=== PATIENT | male | born 1940 | race Caucasian/White ===

== ENCOUNTER 2018-06-25 05:00 | Inpatient (IN) | payer OTHER ==
[~2018-06-25] VITALS: Ht 185.4 cm; Wt 80.3 kg
[2018-06-25] VITALS (25 sets, daily range): BP systolic 75–195; BP diastolic 48–106
[~2018-06-25 05:00] MED LIST: AMLODIPINE BESY10 MG PO; ASPIR 8181 MG PO; FISH OIL 1,001000 M2 PO; GLIPIZIDE 10 MG10 MG PO; HYDROCHLOROTHIA25 M2 PO; LISINOPRIL20 MG PO; METFORMIN HCL500 MG PO
[2018-06-25 05:24] LABS: BE -4.9 mmol/L (-2 to +3); HCO3 19.5 mmol/L (22.0-26.0); PCO2 33.3 mmHg (35.0-45.0); PO2 71.5 mmHg (75.0-100.0); pH 7.386 (7.340-7.450)
[2018-06-25 05:28] LABS: HEMATOCRIT 24.6 % (42.0-52.0); MCH 26.6 pg (26.0-34.0); MCHC 32.7 g/dL (28.0-37.0); MCV 81.1 fL (80.0-100.0); MPV 9.3 fl. (7.2-11.1); NUCLEATED RBCS 0 /100WBC; PLATELET COUNT* 164 thou/uL (150-400); RBC 3.03 mil/uL (4.50-6.00); WBC 21.4 thou/uL (4.0-11.0)
[2018-06-25 05:37] LABS: CALCIUM 9.1 mg/dL (8.5-10.1); CREATININE 1.4 mg/dL (0.6-1.3); POTASSIUM 4.5 mmol/L (3.5-5.1)
[2018-06-25 05:41] LABS: APTT 32.9 Seconds (25.0-31.3); INR 1.3; PROTIME 13.3 Seconds (9.20-11.50)
[2018-06-25 05:52] LABS: ALBUMIN 3.8 g/dL (3.4-5.0); TOTAL BILIRUBIN 1.1 mg/dL (<0.1-1.0); TOTAL PROTEIN 7.6 g/dL (6.4-8.2); TROPONIN-I LEVEL 0.14 ng/mL (<0.06)
[2018-06-25 08:47] LABS: ABSOLUTE BASOPHILS 1.5 thou/uL (0.0-0.2); ABSOLUTE EOSINOPHILS 0.6 thou/uL (0.0-0.7); ABSOLUTE LYMPHOCYTES 2.6 thou/uL (0.8-5.3); ABSOLUTE NEUTROPHILS 16.3 thou/uL (1.6-8.1); ATYPICAL LYMPHS 8 %; METAMYELOCYTES 11 %
[2018-06-25 08:49] LABS: ANISOCYTOSIS 2+; BLASTS 2 %; PLATELET ESTIMATE ADEQUATE; POLYCHROMASIA 2+
[2018-06-25 08:50] LABS: OVALOCYTES 1+
[2018-06-25] MEDS ORDERED: JAKAFI20 MG PO (09:08)
[2018-06-25] MEDS ORDERED: NEURONTIN 300300 M1 PO (09:09)
[2018-06-25] MEDS ORDERED: PRILOSEC 20 MG20 MG PO (09:10)
[2018-06-25] MEDS ORDERED: TRIGLIDE160 M1 PO (09:10)
[2018-06-25 11:14] LABS: BE -5.8 mmol/L (-2 to +3); HCO3 20.6 mmol/L (22.0-26.0); PCO2 44.6 mmHg (35.0-45.0); PO2 94.5 mmHg (75.0-100.0)
[2018-06-25 11:15] LABS: pH 7.282 (7.340-7.450)
--- NOTE | 2018-06-25 11:20 | CON ---
[facility] [address] [place] [address] CONSULTATION Name: LUISA TEE Room: [address] IN M.R.#: [id number] Admission: 06/25/18 Attend Phys: Mervin Flores MD Discharge: Date of : 39 Report #: [id number] THIS REPORT FOR: //name// CC: Dianelys Baker HISTORY OF PRESENT ILLNESS: The patient was intubated during my visit, on sedation. No family were in the room. I did review medical records and discussed with the nursing staff. He is a 78-year-old male patient with history of cardiac disease as mentioned below, presented to the Emergency Room with increasing shortness of breath. Per the record, he had been short of breath for a couple of weeks that were sent for the last 2 days. Apparently, EMS were called to the patient, and he was found to be in AFib. He was in labored breathing, and he was wheezing. The patient had chest pain also for a couple of days per the report from family to the ER staff, and he was slightly confused. He has history of leukemia, and he does not have a chronic lung disease, never been a smoker. No asthma or emphysema, and he is not on any oxygen. His chest x-ray in the ER demonstrated a picture of congestive heart failure with bilateral infiltrates, and he was intubated for distress. During my visit, he was on propofol, slightly arousable, does not follow commands to me. He was tolerating the vent well at that time. REVIEW OF SYSTEMS: Unfortunately is unobtainable due to the patient's condition. He is intubated on sedation. PAST MEDICAL HISTORY: Cardiac disease with a slow heart rate. History of hypertension, diabetes mellitus and leukemia. PAST SURGICAL HISTORY: Prostatectomy for prostate cancer. HOME MEDICATIONS: Metformin, glipizide, lisinopril, amlodipine, hydrochlorothiazide, aspirin. ALLERGIES: PENICILLIN. FAMILY HISTORY: Not obtainable. SOCIAL HISTORY: Not obtainable, although the ER record indicated he is not a smoker. PHYSICAL EXAMINATION: GENERAL: Looks his stated age, lying in bed on sedation, intubated, tolerating the vent. VITAL SIGNS: His blood pressure is 133/65, pulse rate of 107, breathing [address] [place] [address] CONSULTATION Name: CORDELIALUISA DOW Thom Room: [address]#: [id number] Admission: 06/25/18 Attend Phys: Mervin Flores MD Discharge: Date of : 39 Report #: [id number] times per minute, temperature of 36.4, O2 saturation on the monitor 97%. HEENT: Head normocephalic, atraumatic. Pupils are reactive to light. Not pale or jaundiced. External ear looks okay and normal. Oral cavity intubated with ET tube in place. Moist mucous membrane. NECK: Supple. No palpable lymph nodes. No palpable thyroid. Trachea is central. HEART: S1, S2. AFib. ABDOMEN: Soft, lax, nontender, no masses felt, no rebound, no rigidity. CHEST: Diminished air movement bilaterally. Rhonchi and crackles heard at the right lung base, no definite wheezes. EXTREMITIES: Lower extremity, trace edema noted. No calf tenderness. SKIN: Normal for age and race, no rash. NEUROLOGIC: Mood and affect could not be evaluated. Neurologically could not be evaluated. He is sedated on the vent. LYMPHATICS: No palpable lymph nodes. LABORATORY DATA: His ABGs at 5:00 a.m., 7.38/33/71. It is not clear to me if it was done on the vent or not. I did order repeat ABGs. His white blood count 21.4, hemoglobin 8 and platelets of 164. Creatinine of 1.4, potassium 4.5, sodium 138. Glucose was running high. His BNP is elevated. Troponin slightly elevated at 0.14. MRSA screen is pending. His chest x-ray showed cardiomegaly, vascular congestion with extensive bilateral pulmonary infiltrates. CURRENT MEDICATIONS: He is on levofloxacin, steroids, vancomycin, cefepime, ____ scheduled nebulization treatments, Lasix IV twice a day and he was on IV fluids. I did decrease his IV fluids to 40 per hour. IMPRESSION: 1. Acute hypoxic respiratory failure. 2. Pulmonary infiltrate. 3. Congestive heart failure exacerbation with elevated BNP. 4. Mental status change. 5. Possible pneumonia. PLAN: At this point, the patient will be kept on the ventilator. I did increase his tidal volume to 500 to keep the rate the same. I discussed with RT, we will decrease his FIO2 as tolerated. If he meets the criteria for weaning trial, we will initiate weaning trial in the morning. Meanwhile, we will continue diuresis. Cardiology was consulted. Defer decision regarding echo to Cardiology. Keep negative fluid balance. Would continue the propofol for another 24 hours. I did add fentanyl p.r.n. to his medication. We will do a followup chest x-ray and ABGs today and followup chest x-ray and ABGs tomorrow and if he meets the criteria, we will consider weaning trial. I [address] [place] [address] CONSULTATION Name: CORDELIAPALOMALUISA Tomas Room: [address] IN [facility]#: [id number] Admission: 06/25/18 Attend Phys: Mervin Flores MD Discharge: Date of : 39 Report #: [id number] will do Doppler ultrasound of the lower extremities. Thank you for the consult. We will follow along with you. Critical care time 35 minutes <ELECTRONICALLY SIGNED> By: Phillip Reed MD 06/25/18 1120 0939 [id number] Reed MD /nt
--- NOTE | 2018-06-25 11:51 | EKG ---
[place] [address] ELECTROCARDIOGRAM REPORT Name: LUISA TEE Room: [address] ADM IN .R.#: [id number] Admission: 06/25/18 Attend Phys: Mervin Flores MD Discharge: Date of : 39 Report #: [id number] THIS REPORT FOR: //name// [facility] ED Test Date: 2018-06-25 Test Time: 05:06:35 Pat Name: LUISA TEE Department: Room: 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: edouard agrawal : 1940 Requested By: Dameon Lemus Order Number: [id number] MD: Solo Velazquez Measurements Intervals [place] Rate: 109 P: [place]: QRS: -2 QRSD: 104 T: 81 QT: 345 QTc: 465 Interpretive Statements Atrial fibrillation Multiple ventricular premature complexes Probable anterior infarct, old Repol abnrm suggests ischemia, diffuse leads No previous ECG available for comparison Electronically Signed On 06-25-2018 11:50:55 PNEUMATIC JACK OPERATOR by Solo Velazquez [email or web address] <ELECTRONICALLY SIGNED> By: Solo Velazquez MD, FAC 06/25/18 1150 0506 0506 Solo Velazquez MD, [facility] /EPI
--- NOTE | 2018-06-25 16:36 | 2DMMODE ---
[place] [address] 2 D/M-MODE ECHOCARDIOGRAM Name: LUISA TEE Room: [address] IN [facility]#: [id number] Admission: 06/25/18 Attend Phys: Mervin Flores, Discharge: Date of : 39 Date of Service: 06/25/18 1635 Report #: [id number] THIS REPORT FOR: //name// APPROVED REPORT Study performed: 06/25/2018 14:01:12 EXAM: Comprehensive 2D, Doppler, and color-flow Echocardiogram Patient Location: In-Patient Room #: 006 Status: routine BSA: 2.08 HR: 96 bpm BP: 129/71 mmHg Rhythm: NSR Other Information Study Quality: Good Indications Atrial Fibrillation 2D Dimensions IVSd: 11.92 (7-11mm) LVOT Diam: 22.22 (18-24mm) LVDd: 51.82 mm PWd: 9.67 (7-11mm) Ascending Ao: 31.63 (22-36mm) LVDs: 44.09 (25-40mm) Aortic Root: 32.54 mm Volumes Left Atrial Volume (Systole) LA ESV Index: 46.70 mL/m2 Aortic Valve AoV Peak Rickey.: 1.75 m/s AO Peak Gr.: 12.30 mmHg LVOT Max P.42 mmHg AO Mean Gr.: 7.17 mmHg LVOT Mean P.71 mmHg LVOT Max V: 0.92 m/s AO V2 VTI: 30.65 cm LVOT Mean V: 0.60 m/s ROBERTH (VTI): 1.75 cm2 LVOT V1 VTI: 13.82 cm Mitral Valve E/A Ratio: 0.77 MV Decel. Time: 265.21 ms MV E Max Rickey.: 0.55 m/[place] [address] 2 D/M-MODE ECHOCARDIOGRAM Name: LUISA TEE Room: [address] IN .R.#: [id number] Admission: 06/25/18 Attend Phys: Mervin Flores, Discharge: Date of : 39 Date of Service: 06/25/18 1635 Report #: [id number] MV PHT: 76.91 ms MVA (PHT): 2.86 cm2 TDI E/Medial E': 6.88 Medial E' Rickey.: 0.08 m/s Pulmonary Valve PV Peak Rickey.: 1.12 m/s PV Peak Gr.: 5.06 mmHg Tricuspid Valve RAP Estimate: 5.00 mmHg TR Peak Gr.: 22.26 mmHg RVSP: 27.00 mmHg PA Pressure: 27.00 mmHg Left Ventricle The left ventricle is normal size. Regional wall motion abnormalities are noted.There is severe hypokineisis of anterior, inferior segments. There is normal left ventricular wall thickness. Left ventricular systolic function is moderately decreased. LVEF is 30-35%. Grade I - abnormal relaxation pattern. Right Ventricle The right ventricle is normal size. The right ventricular systolic function is normal. Atria Left atrium is moderately dilated. The right atrium size is normal. Aortic Valve Mild aortic valve sclerosis. No aortic regurgitation is present. Mild aortic stenosis. Mitral Valve The mitral valve is normal in structure. Mild mitral regurgitation. No evidence of mitral valve stenosis. Tricuspid Valve The tricuspid valve is normal in structure. Trace tricuspid regurgitation. No pulmonary hypertension. Pulmonic Valve The pulmonary valve is normal in structure. There is no pulmonic valvular [place] [address] 2 D/M-MODE ECHOCARDIOGRAM Name: LUISA TEE Room: [address]#: [id number] Admission: 06/25/18 Attend Phys: Mervin Flores, Discharge: Date of : 39 Date of Service: 06/25/18 1635 Report #: [id number] Great Vessels The aortic root is normal in size. IVC is dilated and collapses <50% with inspiration. Pericardium There is no pericardial effusion. <Conclusion> Regional wall motion abnormalities are noted.There is severe hypokineisis of anterior, inferior segments. Grade I - abnormal relaxation pattern. LVEF is 30-35%. Left atrium is moderately dilated. Mild aortic stenosis. No aortic regurgitation is present. Mild mitral regurgitation. Grade I - abnormal relaxation pattern. <ELECTRONICALLY SIGNED> By: Vin Fitzpatrick MD, FACC 06/25/18 1635 1635 1635 Vin Fitzpatrick MD, FACC /INF
[2018-06-26] VITALS (17 sets, daily range): BP systolic 95–135; BP diastolic 49–65
[2018-06-26 03:47] LABS: ALBUMIN 2.9 g/dL (3.4-5.0); CALCIUM 8.3 mg/dL (8.5-10.1); MAGNESIUM 2.2 mg/dL (1.8-2.4); PHOSPHORUS* 3.6 mg/dL (2.5-4.9); TOTAL BILIRUBIN 0.6 mg/dL (<0.1-1.0)
[2018-06-26 03:52] LABS: CALCIUM 8.1 mg/dL (8.5-10.1)
[2018-06-26 04:24] LABS: MCH 27.2 pg (26.0-34.0); MCHC 33.6 g/dL (28.0-37.0); MPV 9.5 fl. (7.2-11.1); RBC 2.11 mil/uL (4.50-6.00); RDW-CV 23.2 % (10.5-14.5); WBC 7.6 thou/uL (4.0-11.0)
[2018-06-26 04:29] LABS: CREATININE 2.4 mg/dL (0.6-1.3)
[2018-06-26 04:31] LABS: TROPONIN-I LEVEL 1.27 ng/mL (<0.06)
[2018-06-26 04:34] LABS: HEMATOCRIT 17.1 % (42.0-52.0); HEMOGLOBIN 5.7 gm/dL (14.0-18.0)
--- NOTE | 2018-06-26 09:59 | EKG ---
[place] [address] ELECTROCARDIOGRAM REPORT Name: LUISA TEE Room: [address] ADM IN M.R.#: [id number] Admission: 06/25/18 Attend Phys: Mervin lFores MD Discharge: Date of : 39 Report #: [id number] THIS REPORT FOR: //name// [facility] Test Date: 2018-06-25 Test Time: 15:41:28 Pat Name: LUISA TEE Department: Room: [address] Gender: M Rate Inserter: UNK : 1940 Requested By: Solo Velazquez Order Number: [id number] Reading MD: Vin Fitzpatrick Measurements Intervals [place] Rate: 73 P: 53 MI: 241 QRS: 8 QRSD: 81 T: 13 QT: 432 QTc: 476 Interpretive Statements Incomplete analysis due to missing data in precordial lead(s) Sinus rhythm Supraventricular bigeminy Prolonged MI interval Borderline repolarization abnormality Borderline prolonged QT interval Missing lead(s): V2 Compared to ECG 06/25/2018 05:06:35 Atrial premature complex(es) now present First degree AV block now present Atrial fibrillation no longer present Ventricular premature complex(es) no longer present Myocardial infarct finding no longer present Electronically Signed On 06-26-2018 9:59:29 SUPERVISOR FILTRATION by Vin Fitzpatrick [email or web address] <ELECTRONICALLY SIGNED> By: Vin Fitzpatrick MD, [facility] 06/26/18 0959 1541 1541 Vin Fitzpatrick MD, FACC /EPI
[2018-06-26 11:48] LABS: URINE BILIRUBIN NEGATIVE (Negative); URINE BLOOD NEGATIVE (Negative); URINE CLARITY CLEAR; URINE COLOR YELLOW; URINE GLUCOSE-RANDOM NEGATIVE (Negative); URINE KETONES NEGATIVE (Negative); URINE LEUKOCYTES NEGATIVE (Negative); URINE NITRITE NEGATIVE (Negative); URINE PROTEIN NEGATIVE (Negative); URINE SPECIFIC GRAVITY 1.025 (1.005-1.030); URINE UROBILINOGEN 0.2 E.U./dl (0.2-1.0)
[2018-06-26 12:32] LABS: HEMOGLOBIN 7.1 gm/dL (14.0-18.0)
[2018-06-26 14:32] LABS: BE -1.6 mmol/L (-2 to +3); HCO3 21.7 mmol/L (22.0-26.0); PCO2 30.2 mmHg (35.0-45.0); PO2 86.8 mmHg (75.0-100.0); pH 7.474 (7.340-7.450)
[2018-06-27] VITALS (27 sets, daily range): BP systolic 108–154; BP diastolic 51–96
[2018-06-27 04:07] LABS: MCH 27.8 pg (26.0-34.0); MCV 81.9 fL (80.0-100.0); MPV 10.3 fl. (7.2-11.1); NUCLEATED RBCS 2 /100WBC; PLATELET COUNT* 65 thou/uL (150-400); RBC 2.23 mil/uL (4.50-6.00); RDW-CV 22.3 % (10.5-14.5); WBC 8.9 thou/uL (4.0-11.0)
[2018-06-27 04:27] LABS: ALBUMIN 2.8 g/dL (3.4-5.0); ALKALINE PHOSPHATASE 35 U/L (46-116); ANION GAP 9 mmol/L (7-16); BUN 64 mg/dL (7-18); CALCIUM 8.3 mg/dL (8.5-10.1); CHLORIDE 106 mmol/L (98-107); CHOLESTEROL 96 mg/dL (<200); CO2 26 mmol/L (21-32); CREATININE 2.6 mg/dL (0.6-1.3); GLUCOSE 260 mg/dL (70-99); HDL CHOLESTEROL 10 mg/dL (>40); HEMATOCRIT 18.3 % (42.0-52.0); HEMOGLOBIN 6.2 gm/dL (14.0-18.0); LDL CHOLESTEROL 26 mg/dL (<100); POTASSIUM 4.1 mmol/L (3.5-5.1); SGOT 24 U/L (15-37); SGPT 29 U/L (30-65); SODIUM 141 mmol/L (136-145); TC:HDL 9.6 Ratio (Not establshd); TOTAL BILIRUBIN 0.4 mg/dL (<0.1-1.0); TOTAL PROTEIN 6.2 g/dL (6.4-8.2); TRIGLYCERIDE 304 mg/dL (<150); VLDL 61 mg/dL (<40)
[2018-06-27 04:28] LABS: SERUM ASSESSMENT Slight Lipemia
[2018-06-27 06:33] LABS: ABSOLUTE LYMPHOCYTES 0.2 thou/uL (0.8-5.3); ABSOLUTE NEUTROPHILS 8.5 thou/uL (1.6-8.1); ANISOCYTOSIS 2+; METAMYELOCYTES 9 %; PLATELET ESTIMATE DECREASED; PROMYELOCYTES 1 %
[2018-06-27 06:34] LABS: BLASTS 2 %
[2018-06-27 09:35] LABS: BE 0.3 mmol/L (-2 to +3); HCO3 24.2 mmol/L (22.0-26.0); pH 7.457 (7.340-7.450)
[2018-06-27 18:09] LABS: IgA 61 mg/dL (61-437); IgG 577 mg/dL (700-1600)
[2018-06-28] VITALS (24 sets, daily range): BP systolic 111–168; BP diastolic 57–100
[2018-06-28 02:08] LABS: IgM 16 mg/dL (15-143)
[2018-06-28 04:17] LABS: ABSOLUTE BASOPHILS 0.1 thou/uL (0.0-0.2); ABSOLUTE LYMPHOCYTES 0.5 thou/uL (0.8-5.3); ABSOLUTE MONOCYTES 0.3 thou/uL (0.0-1.2); ABSOLUTE NEUTROPHILS 16.5 thou/uL (1.6-8.1); BASOPHILS 0.3 %; EOSINOPHILS 0.1 %; HEMATOCRIT 27.3 % (42.0-52.0); MCH 27.3 pg (26.0-34.0); MCHC 33.5 g/dL (28.0-37.0); MCV 81.7 fL (80.0-100.0); MONOCYTES 1.7 %; MPV 9.8 fl. (7.2-11.1); NUCLEATED RBCS 0 /100WBC; PLATELET COUNT* 108 thou/uL (150-400); POLYS 94.9 %; RBC 3.35 mil/uL (4.50-6.00); RDW-CV 21.5 % (10.5-14.5); WBC 17.4 thou/uL (4.0-11.0)
[2018-06-28 04:22] LABS: HEMOGLOBIN 9.1 gm/dL (14.0-18.0)
[2018-06-28 04:26] LABS: CALCIUM 8.8 mg/dL (8.5-10.1); CREATININE 2.6 mg/dL (0.6-1.3); POTASSIUM 3.5 mmol/L (3.5-5.1)
[2018-06-29] VITALS (10 sets, daily range): BP systolic 119–156; BP diastolic 59–91
--- NOTE | 2018-06-29 10:12 | CON ---
[address] [address] CONSULTATION Name: LUISA TEE Room: [address] IN .R.#: [id number] Admission: 06/25/18 Attend Phys: Mervin Flores MD Discharge: Date of : 39 Report #: [id number] THIS REPORT FOR: //name// CC: Dianelys Baker DATE OF SERVICE: 06/26/2018 CONSULTING PHYSICIAN: . REASON FOR NEPHROLOGY CONSULTATION: Acute kidney injury. REASON FOR ADMISSION: Shortness of breath. HISTORY OF PRESENT ILLNESS: This is a 78-year-old male who has past medical history of prostate cancer, on chemotherapy for that and scheduled for surgery for that. He has history of leukemia, not sure of the exact diagnosis, but he is on an oral chemotherapy, Jakafi, which he started about 2 months ago and history of hypertension who was brought in to the ED because the patient had been having increasing shortness of breath for the past couple of weeks and increasing cough for the past 3-4 days. Also, subjective fevers and not bringing up any sputum. He also was in AFib when initially EMS arrived, but then he converted to sinus rhythm on his own. When he came to the hospital, he was quite short of breath. He had to be intubated and he was on 70% FiO2 and chest x-ray showed evidence of pulmonary edema. He had a creatinine of 1.4 when he came in and according to the patient's , he does not have any history of kidney issues in the past. No history of any kidney stones or recent IV contrast exposure. His blood pressure was also quite low in 70s systolic and he did get IV fluids initially. Because of the chest x-ray findings of pulmonary edema, he was started on Lasix yesterday 40 mg IV every 8 hours and his urine output has picked up and he has made about 1100 mL urine output overnight and he has made 1200 mL of urine output since 7:00 a.m. today. His creatinine has bumped up to 2.4 today from 1.4 yesterday. He does not take any NSAIDs at home. He does take losartan at home. He is not currently on any diuretics at home. He also has evidence of acute on chronic anemia today and his platelet count has also dropped from 164,000 to 85,000 today. His and son are at his bedside. Currently, he was getting a sedation vacation and he is trying to wake up and follow commands. He did have an echocardiogram here yesterday, which showed an ejection fraction of 30-35% with wall motion abnormalities and abnormal relaxation pattern. The patient has no history of congestive heart failure or heart disease in the past. The patient also has been started on antibiotics for possible pneumonia as well. ALLERGIES: PENICILLIN. [address] [place] [address] CONSULTATION Name: LUISA TEE Room: [address] IN [facility].#: [id number] Admission: 06/25/18 Attend Phys: Mervin Flores MD Discharge: Date of : 39 Report #: [id number] REVIEW OF SYSTEMS: As mentioned in history of present illness. FAMILY HISTORY: No history of any kidney disease in the family. SOCIAL HISTORY: Lives at home with his and no history of smoking, alcohol or illicit drug use. 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 HOME MEDICATIONS: Include losartan, the patient is not on lisinopril or hydrochlorothiazide, amlodipine, aspirin, fish oil, ruxolitinib 20 mg b.i.d., gabapentin, fenofibrate and omeprazole. PHYSICAL EXAMINATION: VITAL SIGNS: Temperature 37.3, his pulse rate is 77, blood pressure is 103/61, improved to 120s while I was standing there. He is not on any pressors. His pulse ox is 99%, he is on 35% FiO2 on the ventilator. His respiratory rate is 14. GENERAL: He is currently restless, getting sedation vacation and he is intubated. HEAD, EYES, EARS, NOSE AND THROAT: ET tube in place. NECK: There is no JVD. CHEST: Bilateral diminished breath sounds. No crackles. CARDIOVASCULAR: S1, S2 normal. No murmurs. ABDOMEN: Soft, nondistended, nontender. Bowel sounds are positive. EXTREMITIES: He has no lower extremity edema, symmetrical extremity. NEUROLOGIC: Neurological function cannot assess right now, the patient is currently restless, intubated, getting sedation vacation. PSYCHIATRIC: Cannot assess right now. LABORATORY DATA: His hemoglobin is 5.7, WBC 7.6, platelet count is 85. His sodium is 141, his potassium is 5, his creatinine is 2.4 and his BUN is 47. Other labs were reviewed and creatinine was 1.4 yesterday. IMAGING: Chest x-ray and venous Dopplers were reviewed. ASSESSMENT: 1. Acute kidney injury in the setting of low blood pressure, losartan use as well as low ejection fraction of 30-35%. We do not have his baseline creatinine. 2. The patient is in acute respiratory failure because of pneumonia. He is immunocompromised and flash pulmonary edema, improving on ventilator. 3. Elevated troponin. The patient discovered to have ejection fraction of 30-35% with regional wall motion abnormalities and diastolic dysfunction, [facility] [address] [place] [address] CONSULTATION Name: CORDELIALUISA DOW Thom Room: [address] IN [facility].#: [id number] Admission: 06/25/18 Attend Phys: Mervin Flores MD Discharge: Date of : 39 Report #: [id number] Cardiology is following. 4. Atrial fibrillation, paroxysmal in nature. Currently, the patient is in sinus rhythm. 5. Anemia and thrombocytopenia. 6. History of leukemia and history of prostate cancer, the patient follows with Dr. Baker and he is on oral chemotherapy. 7. History of diabetes mellitus type 2. 8. Hypotension, which is now improving. PLAN: 1. Agree with Lasix in the setting of acute renal insufficiency and since his urine output is great. We will decrease it to Lasix 40 mg IV twice a day. 2. We will check serum immunofixation study and renal ultrasound. 3. Recommend Hematology consult because the patient has history of some kind of leukemia and is on chemotherapy, which is currently on hold. 4. We will also check a uric acid level. 5. His CK was normal. 6. Try to maintain his mean arterial pressure around 70. 7. Please monitor vancomycin level closely and if level is more than 20, hold the dose. 8. Also, check a UA on him. 9. As well check a peripheral blood smear to make sure he has no schistocytes because he has thrombocytopenia in the setting of acute renal insufficiency, although it looks like his thrombocytopenia is related to possible sepsis due to pneumonia and could be associated with his chemotherapy. 10. Avoid nephrotoxic agents and NSAIDs and morphine and IV contrast. Thank you for this consultation. We will continue to follow along with you. I spent more than 35 minutes in the patient's critical care and discussed the plan with the patient's family as well as the patient's nurse. This time was spent in reviewing the patient's records, his medications, ordering medications, and we will continue to follow along with you. <ELECTRONICALLY SIGNED> By: Karen Verma MD 06/29/18 1012 1035 [id number] Verma MD /nt
[2018-06-29 13:11] LABS: KAPPA FREE LIGHT CHAINS 11.8 mg/L (3.3-19.4); LAMBDA FREE LIGHT CHAINS 14.1 mg/L (5.7-26.3)
[2018-06-30 01:28] VITALS: BP 125/61
[2018-06-30 04:00] VITALS: BP 120/60
[2018-06-30 08:00] VITALS: BP 129/59
[2018-06-30 12:00] VITALS: BP 121/64
[2018-06-30 16:00] VITALS: BP 122/64
[2018-07-01 00:52] VITALS: BP 114/64
[2018-07-01 05:01] VITALS: BP 104/62
[2018-07-01 07:50] VITALS: BP 116/51
[2018-07-01 12:00] VITALS: BP 115/60
[2018-07-01 16:00] VITALS: BP 87/50
--- NOTE | 2018-07-01 21:16 | CON ---
[address] [address] CONSULTATION Name: LUISA TEE Room: [address] IN M.R.#: [id number] Admission: 06/25/18 Attend Phys: Mervin Flores MD Discharge: Date of : 39 Report #: [id number] THIS REPORT FOR: //name// CC: Dianelys Baker DATE OF SERVICE: 06/27/2018 INFECTIOUS DISEASE CONSULTATION ATTENDING PHYSICIAN: Dr. Del Angel. REASON FOR EVALUATION: Severe pneumonitis complicated by respiratory failure in a background of myelodysplastic syndrome, myelofibrosis. HISTORY OF PRESENT ILLNESS: Chart reviewed and patient examined. This is a 78-year-old with above noted diagnosis of myelodysplastic syndrome, has been on therapy with ruxolitinib or Jakafi who developed associated weakness around 06/23 in the evening. He ultimately developed a cough, nonproductive, associated progressive dyspnea by the . He had chills with shakes and some sweats and poor p.o. intake. Despite of his 's urging, he refused initially to have it checked out. He ultimately agreed and he was evaluated in the Emergency Room on , he was found to be in respiratory failure. He was intubated and now is seen in the Intensive Care Unit on mechanical ventilatory support, did have sputum collected with some evidence of gram-positive cocci in pairs. He is empirically started on broad-spectrum therapy with vancomycin and cefepime and levofloxacin. History is obtained via spouse and son who he has no particular exposure history that they are aware of. He has not received Pneumovax or Prevnar, has received influenza vaccine. At this point, he is in multiorgan failure in addition to his lungs. Creatinine is 2.6. ALLERGIES: LISTED TO PENICILLINS. CURRENT MEDICATIONS: Include vancomycin, insulin, furosemide, levofloxacin, enoxaparin, methylprednisolone, cefepime, aspirin, pantoprazole. PAST MEDICAL HISTORY: As described above, has diabetes mellitus type 2, history of hypertension, atrial fibrillation, previous diagnosis of prostate cancer with prostatectomy. SOCIAL HISTORY: Nonsmoker, no ethanol, no illicit drug use. FAMILY HISTORY: Noncontributory. REVIEW OF SYSTEMS: Not obtainable due to his sedated [place] [address] CONSULTATION Name: LUISA TEE Room: [address]#: [id number] Admission: 06/25/18 Attend Phys: Mervin Flores MD Discharge: Date of : 39 Report #: [id number] PHYSICAL EXAMINATION: GENERAL: There is some movement with stimuli, does not open his eyes. He is intubated. HEENT AND NECK: He has an ET and NG tube in place, has a right-sided neck vascular catheter. Neck appears to be supple. Oropharynx is without evident lesion. LUNGS: Somewhat diminished few scattered coarse sounds anteriorly. HEART: Irregular. No appreciated murmur. ABDOMEN: Mildly obese, soft. There are no peritoneal signs. EXTREMITIES: Distal lower extremities show only mild edema. SKIN: No evident rashes. GENITOURINARY: Deferred. RECTAL: Deferred. LABORATORY DATA: Blood cultures sterile thus far. Chest x-ray with bibasilar infiltrates consistent with pneumonitis, perhaps a component of heart failure as well. CBC: White count of 8.9, H and H 6.2 and 18.3, platelets of 65; does have some peripheral immature cells including blasts 2%, promyelocytes and metamyelocytes. He has got absolute lymphocytopenia of 200. Uric acid elevated at 9.7. Electrolytes: Sodium 141, potassium 4.1, chloride 106, bicarbonate is 26, anion gap of 9, BUN and creatinine 64 and 2.6, glucose of 260. LFTs unremarkable. Albumin of 2.8. Total protein is 6.2, estimated GFR of 24. Sputum culture in progress. Gram stain showed few gram-positive cocci in pairs. Most recent ABG, pH 7.474, pCO2 of 30.2, pO2 of 86.8 and that was on FiO2 of 35%. Urinalysis negative for protein, negative for white cells. ASSESSMENT: Pneumonitis, complicated by respiratory failure. Agree with empiric combination therapy. We will await culture results. In the interim, efforts on going to wean off support including extubation. A lengthy discussion with the family. They voiced understanding for the opportunity to ask questions. <ELECTRONICALLY SIGNED> By: Jesus Walker MD 07/01/18 2116 0937 [id number] Walker MD /rick
[2018-07-02] VITALS: BP 120/52
[2018-07-02 04:00] VITALS: BP 118/83
[2018-07-02 10:08] LABS: HEMOGLOBIN 9.7 gm/dL (14.0-18.0); NUCLEATED RBCS 0 /100WBC
[2018-07-02 10:10] LABS: MCH 27.6 pg (26.0-34.0); MCHC 33.5 g/dL (28.0-37.0); MCV 82.4 fL (80.0-100.0); MPV 9.7 fl. (7.2-11.1); PLATELET COUNT* 116 thou/uL (150-400); RBC 3.52 mil/uL (4.50-6.00); RDW-CV 21.5 % (10.5-14.5); WBC 24.9 thou/uL (4.0-11.0)
[2018-07-02 10:43] LABS: ABSOLUTE LYMPHOCYTES 1.7 thou/uL (0.8-5.3); ABSOLUTE MONOCYTES 0.2 thou/uL (0.0-1.2); ABSOLUTE NEUTROPHILS 22.9 thou/uL (1.6-8.1); MYELOCYTES 7 %; PLATELET ESTIMATE DECREASED
[2018-07-02 10:45] LABS: ANISOCYTOSIS 1+; POIKILOCYTOSIS 1+
[2018-07-02 12:00] VITALS: BP 116/57
--- NOTE | 2018-07-02 13:08 | CON ---
[facility] [address] [place] [address] CONSULTATION Name: LUISA TEE Room: [address] IN M.R.#: [id number] Admission: 06/25/18 Attend Phys: Mervin Flores MD Discharge: Date of : 38 Report #: [id number] THIS REPORT FOR: //name// CC: Dianelys Baker DATE OF SERVICE: 06/25/2018 CARDIOLOGY CONSULTATION HISTORY OF PRESENT ILLNESS: The patient is a 78-year-old white male who I was asked to see in the hospital today after he complained of being short of breath. The history is obtained from the patient's who was present. The patient is currently sedated and on a ventilator. He has a history of prostate cancer, hypertension, and diabetes. However, he stays fairly active. He has had no recent complaints. Apparently last month when he saw a physician, he was told he might be in atrial fibrillation. However, he has never seen a bridal service sales and management. There has been no history of chest pain, palpitation, syncope. Apparently, the patient has been short of breath for the past couple of days. He has had a cough. No swelling of his feet. Because of increasing shortness of breath, an ambulance was called this morning. He was brought here to [place] by ambulance. He was found to be in respiratory distress and was intubated in the Emergency Room. He was noted to have an abnormal ECG and I was asked to see him for further evaluation and treatment. PAST MEDICAL HISTORY: Otherwise significant for hernia repair, hypertension, diabetes. MEDICATIONS: Consists of metformin, glipizide, lisinopril, amlodipine, hydrochlorothiazide, aspirin. ALLERGIES: He has an allergy to PENICILLIN. FAMILY HISTORY: Negative for heart disease. SOCIAL HISTORY: He is . He and his live in [place]. 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 No history of smoking or alcohol abuse. REVIEW OF SYSTEMS: He has had no history of asthma. He apparently did have a stroke 10 years ago with left-sided weakness of his face. He has no history of asthma. No history of liver disease, kidney disease. Apparently, the patient recently was diagnosed with leukemia and has been treated recently. He has been noted to be anemic. No history of psychiatric illness [place] [address] CONSULTATION Name: LUISA TEE Room: [address]#: [id number] Admission: 06/25/18 Attend Phys: Mervin Flores MD Discharge: Date of : 39 Report #: [id number] PHYSICAL EXAMINATION: GENERAL: Revealed an elderly male on a ventilator. VITAL SIGNS: He had a blood pressure of 100/70, pulse is 80 and irregular. He was afebrile. HEENT: He is anicteric. Conjunctivae are pale. Mucous membranes appear dry. NECK: Veins do not appear distended. CHEST: Revealed decreased breath sounds. CARDIOVASCULAR: Irregular rhythm. No significant murmur. ABDOMEN: Obese. EXTREMITIES: Had no pitting edema. Dorsalis pedis pulse could not be palpated. SKIN: Cool and dry. NEUROLOGIC: His eyes were closed. He would withdraw from pain. ECG on admission appeared to show sinus rhythm, first degree AV block, occasional PVCs, nonspecific ST and T-wave changes. Workup in the Emergency Room today, portable chest x-ray, extensive bilateral pulmonary infiltrates, cardiomegaly, vascular congestion. Venous duplex scan done today showed no DVT. LABORATORY DATA: BUN 29, creatinine 1.4, glucose 356. Troponin is 0.14. BNP 5937. White blood cell count 21,000, hemoglobin 8, platelet count 164,000 and 7% basophils. The patient did have previous nuclear stress test back in [address] Hoang because of shortness of breath. This showed no evidence of ischemia with ejection fraction of 71%. IMPRESSION AND RECOMMENDATIONS: 1. Shortness of breath. The patient in pulmonary edema. Recommend Lasix. 2. Abnormal ECG. We will monitor for AFib. 3. Leukemia. 4. History of prostate cancer. 5. Previous stroke. 6. Chronic kidney disease. <ELECTRONICALLY SIGNED> By: Solo Velazquez MD, FACC 07/02/18 1308 1412 1655Dajoaquina Velazquez MD, FACC /nt
[2018-07-02 16:00] VITALS: BP 111/49; BP 130/56; BP 91/31; BP 95/39
[2018-07-02 20:20] VITALS: BP 110/66
[2018-07-03] VITALS: BP 128/48
[2018-07-03 02:06] LABS: ADENOVIRUS Negative (Negative); INFLUENZA A Negative (Negative); INFLUENZA B Negative (Negative); METAPNEUMOVIRUS Negative (Negative); PARAINFLUENZA 1 Negative (Negative); PARAINFLUENZA 2 Negative (Negative); PARAINFLUENZA 3 Negative (Negative); RHINOVIRUS Negative (Negative); RSV A Negative (Negative); RSV B Negative (Negative)
[2018-07-03 04:00] VITALS: BP 115/43
[2018-07-03 06:00] LABS: CALCIUM 7.8 mg/dL (8.5-10.1); CREATININE 2.5 mg/dL (0.6-1.3); POTASSIUM 4.1 mmol/L (3.5-5.1); TOTAL BILIRUBIN 0.5 mg/dL (<0.1-1.0); TOTAL PROTEIN 5.5 g/dL (6.4-8.2)
[2018-07-03 12:00] VITALS: BP 112/55
[2018-07-03 15:59] VITALS: BP 128/50
[2018-07-03 20:10] VITALS: BP 115/66
[2018-07-03 23:42] VITALS: BP 127/54
[2018-07-04 04:00] VITALS: BP 120/70
[2018-07-04 05:22] LABS: ALBUMIN 2.8 g/dL (3.4-5.0); CALCIUM 7.9 mg/dL (8.5-10.1); CREATININE 2.1 mg/dL (0.6-1.3); PHOSPHORUS* 3.8 mg/dL (2.5-4.9); POTASSIUM 4.4 mmol/L (3.5-5.1)
[2018-07-04] MEDS ORDERED: XARELTO15 MG PO (11:10)
[2018-07-04] MEDS ORDERED: LIPITOR10 MG PO (11:14)
[2018-07-04] MEDS ORDERED: SENNA PLUS TAB1 EACH PO (11:14)
[2018-07-04] MEDS ORDERED: HUMALOG100 UNIT/1 SUBQ (11:14)
[2018-07-04] MEDS ORDERED: GLUCOTROL5 MG PO (11:14)
[2018-07-04 11:17] VITALS: BP 105/40
== END 2018-07-04 16:05 | DRG 871 ==
LOC: M.ERS 05:00 → M.ICU 06:19 → M.TBA-ER 06:19 → M.ICU 07:50 → M.2W 06-29 07:45
PROVIDERS: Family Medicine; Internal Medicine; Internal Medicine Cardiovascular Disease; Internal Medicine Nephrology; Internal Medicine Pulmonary Disease; Specialist; ADMIT Internal Medicine
PROC: 0BH17EZ Insertion of Endotracheal Airway into Trachea, Via Natural or Artificial Opening (ICD-10-PCS; principal; 2018-06-25)
PROC: 5A1945Z Respiratory Ventilation, 24-96 Consecutive Hours (ICD-10-PCS; principal; 2018-06-25)
PROC: 02HV33Z Insertion of Infusion Device into Superior Vena Cava, Percutaneous Approach (ICD-10-PCS; principal; 2018-06-25)
PROC: 30233N1 Transfusion of Nonautologous Red Blood Cells into Peripheral Vein, Percutaneous Approach (ICD-10-PCS; 2018-06-27)
DX: A41.9 Sepsis, unspecified organism (principal); J96.01 Acute respiratory failure with hypoxia; I50.43 Acute on chronic combined systolic (congestive) and diastolic (congestive) heart failure; J15.6 Pneumonia due to other Gram-negative bacteria; I13.0 Hypertensive heart and chronic kidney disease with heart failure and stage 1 through stage 4 chronic kidney disease, or unspecified chronic kidney disease; C95.90 Leukemia, unspecified not having achieved remission; N17.9 Acute kidney failure, unspecified; I42.9 Cardiomyopathy, unspecified; D75.81 Myelofibrosis; D46.9 Myelodysplastic syndrome, unspecified; N18.3 Chronic kidney disease, stage 3 (moderate); R16.1 Splenomegaly, not elsewhere classified; I48.0 Paroxysmal atrial fibrillation; E11.22 Type 2 diabetes mellitus with diabetic chronic kidney disease; D69.6 Thrombocytopenia, unspecified; Z92.21 Personal history of antineoplastic chemotherapy; Z90.79 Acquired absence of other genital organ(s); Z85.46 Personal history of malignant neoplasm of prostate; Z88.0 Allergy status to penicillin; Z79.82 Long term (current) use of aspirin; Z79.01 Long term (current) use of anticoagulants; Z79.84 Long term (current) use of oral hypoglycemic drugs; Z86.73 Personal history of transient ischemic attack (TIA), and cerebral infarction without residual deficits; Z82.49 Family history of ischemic heart disease and other diseases of the circulatory system

== ENCOUNTER 2018-07-09 16:07 | Observation (INO) | payer OTHER ==
[~2018-07-09] VITALS: Ht 185.4 cm; Wt 76.7 kg
[~2018-07-09 16:07] MED LIST changes: +GLUCOTROL5 MG PO; +HUMALOG100 UNIT/1 SUBQ; +JAKAFI20 MG PO; +LIPITOR10 MG PO; +NEURONTIN 300300 M1 PO; +PRILOSEC 20 MG20 MG PO; +SENNA PLUS TAB1 EACH PO; +TRIGLIDE160 M1 PO; +XARELTO15 MG PO
[2018-07-09 16:11] VITALS: BP 101/48
[2018-07-09 16:35] LABS: NUCLEATED RBCS 0 /100WBC; PLATELET COUNT* 138 thou/uL (150-400)
[2018-07-09 16:37] LABS: HEMATOCRIT 20.3 % (42.0-52.0); MCH 26.9 pg (26.0-34.0); MCHC 32.3 g/dL (28.0-37.0); MCV 83.2 fL (80.0-100.0); MPV 9.1 fl. (7.2-11.1); RBC 2.44 mil/uL (4.50-6.00); RDW-CV 21.6 % (10.5-14.5); WBC 21.5 thou/uL (4.0-11.0)
[2018-07-09 16:40] LABS: ANION GAP 8 mmol/L (7-16); BUN 44 mg/dL (7-18); CALCIUM 8.3 mg/dL (8.5-10.1); CHLORIDE 105 mmol/L (98-107); CO2 26 mmol/L (21-32); CREATININE 1.7 mg/dL (0.6-1.3); GLUCOSE 151 mg/dL (70-99); POTASSIUM 5.2 mmol/L (3.5-5.1); SODIUM 139 mmol/L (136-145)
[2018-07-09 16:43] LABS: APTT 24.4 Seconds (25.0-31.3); INR 1.1; PROTIME 11.4 Seconds (9.20-11.50)
[2018-07-09 16:51] LABS: ALBUMIN 3.1 g/dL (3.4-5.0); ALKALINE PHOSPHATASE 62 U/L (46-116); HEMOGLOBIN 6.6 gm/dL (14.0-18.0); NT-PRO BRAIN NAT PEPTIDE 2322 pg/mL (<300); SGOT 17 U/L (15-37); SGPT 23 U/L (30-65); TOTAL BILIRUBIN 0.6 mg/dL (<0.1-1.0); TOTAL PROTEIN 6.3 g/dL (6.4-8.2); TROPONIN-I LEVEL <0.06 ng/mL (<0.06)
[2018-07-09 17:39] LABS: ABSOLUTE BASOPHILS 0.2 thou/uL (0.0-0.2); ABSOLUTE EOSINOPHILS 0.4 thou/uL (0.0-0.7); ABSOLUTE LYMPHOCYTES 1.1 thou/uL (0.8-5.3); ABSOLUTE MONOCYTES 0.9 thou/uL (0.0-1.2); ABSOLUTE NEUTROPHILS 18.9 thou/uL (1.6-8.1)
[2018-07-09 17:40] LABS: ANISOCYTOSIS 1+; MACROCYTES 1+; PLATELET ESTIMATE DECREASED
[2018-07-09 18:15] VITALS: BP 117/47; BP 121/55
--- NOTE | 2018-07-09 19:28 | NUR ---
ASSUMED PT CARE @ 1830 FROM ED. RFA IV 20G. VS=98.0-18-109/52-58-95 % ON RA. UP WITH SBA. ORIENTED TO ROOM. ADMISSION HISTORY STARTED. CALL LIGHT WITHIN REACH.
[2018-07-09 19:35] VITALS: BP 109/52
[2018-07-09 19:59] VITALS: BP 111/48; BP 118/48; BP 119/50; BP 120/48; BP 126/46
[2018-07-10] VITALS: BP 121/43
[2018-07-10 00:52] LABS: HEMATOCRIT 23.2 % (42.0-52.0); HEMOGLOBIN 7.6 gm/dL (14.0-18.0)
[2018-07-10 04:00] VITALS: BP 134/50
--- NOTE | 2018-07-10 05:14 | NUR ---
PT SLEPT FAIRLY WELL OVERNIGHT. RECEIVED ONE UNIT PRBC, HGB RECHECK AT 7.6 AFTER TRANSFUSION. UP WITH SBA AT BEDSIDE USING URINAL TO VOID, LASIX GIVEN ORDERED AFTER TRANSFUSION. TELE AFIB, RATE 50'S. RFA SL. HS ACCUCHECK 161, INSULIN GIVEN ORDERED. HAS DENIED PAIN. PT TURNS INDEP IN BED. BLE EDEMA 2+. ANDREAFSKI. ABLE TO USE CALL LITE AND MAKE NEEDS KNOWN.BED ALARM ON FOR SAFETY.
[2018-07-10 07:30] VITALS: BP 130/37
[2018-07-10 12:00] VITALS: BP 130/59
[2018-07-10 12:15] VITALS: BP 130/59
--- NOTE | 2018-07-10 12:18 | NUR ---
CM ASSESSMENT: MET WITH PT AND IN ROOM. PT HAS BEEN AT [facility] FOR SNU FOR A FEW DAYS. PT WAS ADMITTED FOR ANEMIA AND RECEIVED A BLOOD TRANSFUSION. PLAN TO RETURN TO [facility]. PRIOR TO SNU PT HAD LIVED AT HOME WITH HIS AND PERFORMS OWN ADLS. NO DME
--- NOTE | 2018-07-10 13:38 | NUR ---
CARD CHECKER INFORMED THAT PATIENT TO D/C TODAY BACK TO [facility]. D/C CAR HOP SPOKE TO USAMA WITH [facility] TO INFORM OF THE PATIENT'S RETURN, AND SHE INFORMS THAT TRANSPORT WILL ARRIVE AT 1330. D/C CAR HOP FAXED PATIENT'S D/C ORDERS TO [facility]. PATIENT'S SPOUSE INFORMED OF THE PATIENT'S RETURN AND SHE IS IN AGREEMENT. CM WILL REMAIN AVIALABLE TO ASSIST AND FOLLOW NEEDED.
--- NOTE | 2018-07-10 14:02 | NUR ---
Nutrition: Pt admitted for blood transfusion. Going back to [facility] this afternoon. He is very pale. BG is highly variable, alb 3.1, prealb 12.7. Wt: 169#. Physician indicated Moderate PCM - agree. stated that [facility] does not give pt CHO controlled diet, nor do they have any supplements or suger-free items. RD called [facility] to discuss options for this pt. RD on staff not available at this time. RD will try to contact [facility] RD at a later date.
--- NOTE | 2018-07-10 14:24 | NUR ---
PATIENT ADM YESTERDAY FOR OBSERVATION. A&OX4, ROOM AIR, IV RIGHT FOREARM SALINE LOCK. UP STAND BY, STEADY GAIT. NO C/O PAIN/N/V. PATIENT DISCHARGED BACK TO [facility] FOR REHAB. P[facility]INT LEFT UNIT AT 1420 VIA W/C WITH TRANSPORTER AND , ALL BELONGINGS TAKEN WITH PATIENT. CALLED AND GAVE REPORT. NO OTHER CONCERNS AT THIS TIME. APPROPRIATE AND COOPORATIVE WITH CARE.
--- NOTE | 2018-07-10 16:20 | EKG ---
[place] [address] ELECTROCARDIOGRAM REPORT Name: LUISA TEE Room: [address]#: [id number] Admission: 07/09/18 Attend Phys: Mervin Flores MD Discharge: 07/10/18 Date of : 39 Report #: [id number] THIS REPORT FOR: //name// [facility] ED Test Date: 2018-07-09 Test Time: 16:40:33 Pat Name: LUISA TEE Department: Room: [facility] Gender: M Assistant Facility Manager: MS : 1940 Requested By: Jneny Rubin Order Number: [id number] MD: Anthony Cowan Measurements Intervals [place] Rate: 56 P: 60 ND: 268 QRS: -10 QRSD: 87 T: 30 QT: 434 QTc: 419 Interpretive Statements Sinus rhythm Atrial premature complexes Prolonged ND interval Compared to ECG 06/25/2018 15:41:28 No significant changes Electronically Signed On 07-10-2018 16:20:49 CHIEF OF POLICE by Anthony Cowan [email or web address] <ELECTRONICALLY SIGNED> By: Anthony Cowan MD, FACC 07/10/18 1620 1640 1640 Anthony Cowan MD, FAC /EPI
== END 2018-07-10 14:20 ==
LOC: M.ERS 16:07 → M.3W 17:16 → M.TBA-ER 17:16 → M.3W 17:44
PROVIDERS: Personal Emergency Response Attendant; ADMIT Internal Medicine
DX: D75.81 Myelofibrosis (principal); D50.0 Iron deficiency anemia secondary to blood loss (chronic); I13.0 Hypertensive heart and chronic kidney disease with heart failure and stage 1 through stage 4 chronic kidney disease, or unspecified chronic kidney disease; E11.22 Type 2 diabetes mellitus with diabetic chronic kidney disease; N18.3 Chronic kidney disease, stage 3 (moderate); I50.42 Chronic combined systolic (congestive) and diastolic (congestive) heart failure; N17.0 Acute kidney failure with tubular necrosis; E44.0 Moderate protein-calorie malnutrition; R53.81 Other malaise; C61 Malignant neoplasm of prostate; I48.91 Unspecified atrial fibrillation; D68.59 Other primary thrombophilia; R60.0 Localized edema; J81.1 Chronic pulmonary edema; R79.9 Abnormal finding of blood chemistry, unspecified; Z79.82 Long term (current) use of aspirin; Z85.6 Personal history of leukemia; Z79.899 Other long term (current) drug therapy; Z86.73 Personal history of transient ischemic attack (TIA), and cerebral infarction without residual deficits; Z79.4 Long term (current) use of insulin

== ENCOUNTER → 2018-07-18 | Outpatient (CLI) | payer OTHER ==
[2018-07-18 09:47] VITALS: BP 129/59; BP 134/57; BP 146/64
[2018-07-18 11:27] VITALS: BP 114/64; BP 132/64; BP 146/64; BP 153/64
--- NOTE | 2018-07-18 14:06 | NUR ---
ARRIVED PER WHEELCHAIR. TRANSFERED SELF TO RECLINER. IV STARTED WITH OUT DIFFICULTY. TYPE AND CROSS DRAWN FROM IV START. TRANSFUSION COMPLETED AND TOLERATED WELL. DENEIS QUESTIONS OR NEEDS AT DISHARGE.
== END ==
LOC: M.INFUS 07:30
DX: D64.9 Anemia, unspecified (principal)

== ENCOUNTER 2018-08-17 08:47 | Inpatient (IN) | payer OTHER ==
[~2018-08-17] VITALS: Ht 185.4 cm; Wt 76.2 kg
[2018-08-17 08:58] VITALS: BP 126/46
[2018-08-17] MEDS ORDERED: LOPRESSOR50 PO (09:06)
[2018-08-17] MEDS ORDERED: LASIX 40 MG TAB40 M2 PO (09:07)
[2018-08-17] MEDS ORDERED: JAKAFI20 MG PO (09:08)
[2018-08-17 09:20] LABS: MCH 27.4 pg (26.0-34.0); MCHC 32.4 g/dL (28.0-37.0); MCV 84.6 fL (80.0-100.0); NUCLEATED RBCS 0 /100WBC; PLATELET COUNT* 261 thou/uL (150-400); RBC 3.66 mil/uL (4.50-6.00); RDW-CV 18.7 % (10.5-14.5)
[2018-08-17 09:29] LABS: ANION GAP 8 mmol/L (7-16); BUN 52 mg/dL (7-18); CALCIUM 8.9 mg/dL (8.5-10.1); CHLORIDE 103 mmol/L (98-107); CO2 28 mmol/L (21-32); CREATININE 1.9 mg/dL (0.6-1.3); GLUCOSE 208 mg/dL (70-99); POTASSIUM 4.6 mmol/L (3.5-5.1); SODIUM 139 mmol/L (136-145)
[2018-08-17 09:37] LABS: APTT 37.8 Seconds (25.0-31.3); INR 1.5; PROTIME 15.8 Seconds (9.20-11.50)
[2018-08-17 09:40] LABS: ALBUMIN 4.3 g/dL (3.4-5.0); ALKALINE PHOSPHATASE 69 U/L (46-116); NT-PRO BRAIN NAT PEPTIDE 2545 pg/mL (<300); SGOT 30 U/L (15-37); SGPT 24 U/L (30-65); TOTAL PROTEIN 7.7 g/dL (6.4-8.2); TROPONIN-I LEVEL <0.06 ng/mL (<0.06)
[2018-08-17 09:47] LABS: URINE BILIRUBIN NEGATIVE (Negative); URINE BLOOD NEGATIVE (Negative); URINE CLARITY CLEAR; URINE COLOR YELLOW; URINE GLUCOSE-RANDOM NEGATIVE (Negative); URINE KETONES NEGATIVE (Negative); URINE LEUKOCYTES-REFLEX NEGATIVE (Negative); URINE NITRITE-REFLEX NEGATIVE (Negative); URINE PROTEIN TRACE (Negative); URINE SPECIFIC GRAVITY 1.025 (1.005-1.030); URINE UROBILINOGEN 0.2 E.U./dl (0.2-1.0)
[2018-08-17 09:52] LABS: ABSOLUTE BASOPHILS 0.3 thou/uL (0.0-0.2); ABSOLUTE EOSINOPHILS 0.8 thou/uL (0.0-0.7); ABSOLUTE LYMPHOCYTES 1.3 thou/uL (0.8-5.3); ABSOLUTE MONOCYTES 0.8 thou/uL (0.0-1.2); ANISOCYTOSIS 2+; ATYPICAL LYMPHS 3 %; METAMYELOCYTES 2 %; MYELOCYTES 1 %; PLATELET ESTIMATE ADEQUATE; POLYCHROMASIA 1+
[2018-08-17 09:53] LABS: SCHISTOCYTES 1+
[2018-08-17 10:05] LABS: BLASTS 4 %; PROMYELOCYTES 3 %
[2018-08-17 10:50] VITALS: BP 112/45
[2018-08-17 11:16] VITALS: BP 92/69
[2018-08-17 11:54] VITALS: BP 141/122
--- NOTE | 2018-08-17 15:49 | EKG ---
[place] [address] ELECTROCARDIOGRAM REPORT Name: LUISA TEE Room: [address] ADM IN .R.#: [id number] Admission: 08/17/18 Attend Phys: Mervin Flores MD Discharge: Date of : 39 Report #: [id number] THIS REPORT FOR: //name// [facility] ED Test Date: 2018-08-17 Test Time: 09:00:25 Pat Name: LUISA TEE Department: Room: [facility] Gender: Search Engine Optimization Specialist: Marry PUGH : 1940 Requested By: Austin Love Order Number: [id number] : Tereso Puente Measurements Intervals [place] Rate: 57 P: 0 MT: 295 QRS: -10 QRSD: 84 T: 32 QT: 440 QTc: 429 Interpretive Statements Sinus rhythm Prolonged MT interval Compared to ECG 07/09/2018 16:40:33 Atrial premature complex(es) no longer present Electronically Signed On 08-17-2018 15:48:49 CUSTOMER SALES ADVISOR by Tereso Puente [email or web address] <ELECTRONICALLY SIGNED> By: Tereso Puente MD, [facility] 08/17/18 1548 9 09 Tereso Puente MD, [facility] /EPI
[2018-08-17 16:05] VITALS: BP 136/58
--- NOTE | 2018-08-17 17:03 | NUR ---
PATIENT ARRIVED TO THE UNIT AT APPROX 1145. ALERT AND ORIENTED X4. PATIENT FORGETFUL AT TIMES. ADMISSION HISTORY AND ASSESSMENT COMPLETED AND CHARTED. VSS ON ROOM AIR. FLUIDS AND ANTIBIOTICS INFUSED ORDERED. NO COMPLAINTS OF PAIN, NAUSEA, OR SOA. NSR ON MONITOR. PATIENT UP WITH 1 ASSIST, UNSTEADY GAIT. VOIDING PER URINAL. FALL PRECAUTIONS IN PLACE. HOURLY ROUNDS COMPLETED CALL LIGHT WITHIN REACH. NURSING WILL CONTINUE TO MONITOR.
[2018-08-17 20:14] VITALS: BP 137/58
[2018-08-18] VITALS: BP 112/45
[2018-08-18 03:50] VITALS: BP 106/36
[2018-08-18 04:55] LABS: HEMATOCRIT 20.6 % (42.0-52.0); MCH 27.9 pg (26.0-34.0); MCHC 33.1 g/dL (28.0-37.0); MCV 84.4 fL (80.0-100.0); MPV 7.9 fl. (7.2-11.1); RBC 2.44 mil/uL (4.50-6.00); RDW-CV 18.9 % (10.5-14.5); WBC 11.8 thou/uL (4.0-11.0)
[2018-08-18 05:10] LABS: HEMOGLOBIN 6.8 gm/dL (14.0-18.0)
[2018-08-18 05:11] LABS: CALCIUM 7.7 mg/dL (8.5-10.1); CREATININE 1.6 mg/dL (0.6-1.3); MAGNESIUM 1.8 mg/dL (1.8-2.4); POTASSIUM 3.9 mmol/L (3.5-5.1)
--- NOTE | 2018-08-18 05:12 | NUR ---
ASSUMED PT CARE AT 1930, PT IS A&OX4, TRACING NSR WITH A 1DAVB. PT IS ON 2L NC SATTING MID TO HIGH 90'S. PT HAS IVF INFUSING PER MAR. ON CL DIET. PT DENIES ANY PAIN OR NEEDS AT THIS TIME. BED IN LOW POSITION, CALL LIGHT IN REACH, BED ALARM ON, YELLOW ARM BAND AND SOCKS IN PLACE. HOURLY ROUNDING COMPELTED FOR PT SAFETY.
--- NOTE | 2018-08-18 07:15 | NUR ---
CHANGE OF SHIFT, BEDSIDE REPORT GIVEN PATIENT SEEN AT BEDSIDE, IN BED ASLEEP ASSUMED PATIENT CARE
[2018-08-18 07:41] LABS: HEMATOCRIT 20.8 % (42.0-52.0)
[2018-08-18 08:00] VITALS: BP 132/57
[2018-08-18 12:00] VITALS: BP 115/44
[2018-08-18 16:00] VITALS: BP 126/40
[2018-08-18 20:00] VITALS: BP 128/75
[2018-08-19] VITALS: BP 148/70
[2018-08-19 04:00] VITALS: BP 169/72
--- NOTE | 2018-08-19 04:42 | NUR ---
PT CARE ASSUMED AT 1930. SAT MAINTAINED IN RA. CALL LIGHT WITHIN REACH AND BED IN LOW POSITION. ALERT AND ORIENTED X4 AND FORGETFUL. DENIES SOB AND PAIN. HOURLY ROUNDING DONE FOR PT SAFTEY.
[2018-08-19 05:08] LABS: HEMATOCRIT 25.3 % (42.0-52.0); HEMOGLOBIN 8.4 gm/dL (14.0-18.0); MCH 27.9 pg (26.0-34.0); MCHC 33.2 g/dL (28.0-37.0); MPV 8.4 fl. (7.2-11.1); RBC 3.01 mil/uL (4.50-6.00); RDW-CV 18.4 % (10.5-14.5); WBC 21.1 thou/uL (4.0-11.0)
[2018-08-19 05:39] LABS: CALCIUM 8.3 mg/dL (8.5-10.1); CREATININE 1.3 mg/dL (0.6-1.3); MAGNESIUM 2.1 mg/dL (1.8-2.4); POTASSIUM 4.7 mmol/L (3.5-5.1)
--- NOTE | 2018-08-19 07:15 | NUR ---
CHANGE OF SHIFT BEDSIDE REPORT GIVEN PATIENT SEEN AT BEDSIDE, IN BED ASLEEP ASSUMED PATIENT CARE
[2018-08-19 08:00] VITALS: BP 177/93
[2018-08-19 20:00] VITALS: BP 157/65
[2018-08-20] VITALS: BP 168/62
[2018-08-20 02:05] LABS: GLYCOHEMOGLOBIN (HGB A1C) 5.8 % (4.8-5.6)
[2018-08-20 03:54] LABS: HEMATOCRIT 22.1 % (42.0-52.0); HEMOGLOBIN 7.5 gm/dL (14.0-18.0); MCHC 33.9 g/dL (28.0-37.0); MCV 82.5 fL (80.0-100.0); MPV 7.7 fl. (7.2-11.1); RBC 2.68 mil/uL (4.50-6.00); RDW-CV 18.5 % (10.5-14.5); WBC 12.9 thou/uL (4.0-11.0)
[2018-08-20 04:02] LABS: CALCIUM 8.3 mg/dL (8.5-10.1); CREATININE 1.5 mg/dL (0.6-1.3); MAGNESIUM 1.9 mg/dL (1.8-2.4); POTASSIUM 4.2 mmol/L (3.5-5.1)
--- NOTE | 2018-08-20 05:06 | NUR ---
PT CARE ASSSUMED AT 1930. SAT MAINTAINED IN RA. CALL LIGHT WITHIN REACH AND BED IN LOW POSITION. DENIES SOB AND PAIN. ALERT AND ORIENTED X 4 BUT FORGETFUL. HOURLY ROUNDING DONE FOR PT SAFETY. SLEPT THROUGH MOST OF THE NIGHT.
[2018-08-20 07:59] VITALS: BP 161/74
--- NOTE | 2018-08-20 09:06 | NUR ---
ASSUMED CARE OF PT THIS AM AROUND 714- MS STATUS IN PLACE MAINTAINED- UPON ASSESSMENT PT NOTED TO BE RESTING IN BED, WATCHING TV- PT A&O X4 WITH FORGETFULLNESS NOTED- CONTINENT VS INCONTINENT OF BOWEL AND BLADDER- EXPIRATORY WHEEZING NOTED, WET COUGH NOTED- VSS, O2 SAT 95% ON RA- ABDOMEN SOFT/ROUND/NON-TENDER, BS X4 QUADS- LAST BM REPORTED 08/19/18- GOOD PO INTAKE NOTED THIS AM-BS MONITORED ORDERED, SSI AND ORAL MEDICATIONS PRESCIBED- IV NOTED TO LEFT FA INTACT AND SL-PT DENIES ANY C/O PAIN/DISCOMFORT AT THIS TIME- CALL LIGHT AND PERSONAL BELONGINGS WITH IN REACH- HOURLY ROUNDS IN PLACE R/T SAFETY/NEEDS- ALL NEEDS MET AT THIS TIME-WCTM
[2018-08-20] MEDS ORDERED: CEFDINIR300 MG PO (10:13)
[2018-08-20] MEDS ORDERED: VENTOLIN HFA 1818 GM INH (10:13)
[2018-08-20] MEDS ORDERED: PREDNISONE 10 M10 MG PO (10:13)
[2018-08-20] MEDS ORDERED: MUCINEX600 MG PO (10:13)
[2018-08-20] MEDS ORDERED: AZITHROMYCIN 2250 MG PO (10:13)
[2018-08-20 10:54] VITALS: BP 161/74
--- NOTE | 2018-08-20 12:41 | NUR ---
ORDERS RECIEVIED THIS SHIFT PER FOR OKAY TO D/C HOME- IV TO LEFT FA D/C'D PRIOR TO D/C- D/C TEACHING/EDUCATION GIVEN TO PT AND AT TIME OF D/C WELL NEEDED FOLLOW UP APPOINTMENTS WITH VERBAL UNDERSTANDING RECIEVIED PER PT AND - WRITTEN EDUCATION ALONG WITH SCRIPTS PROVIDED TO PT AT TIME OF D/C- PT STAYED THROUGH LUNCH WITH SSI LUNCH INSULIN GIVEN PRIOR TO D/C- BELONGINGS PACKED AND ACCOUNTED FOR PER - PT ESCORTED PER TECH VIA W/C TO VEHICLE WITH BELONGINGS; AT SIDE- NOT D/C TIME OF 1245- NO PROBLEMS TO NOTE AT TIME OF D/C
== END 2018-08-20 12:45 | disposition home or self-care (01) | DRG 871 ==
LOC: M.ERS 08:47 → M.TBA-ER 10:21 → M.2W 10:21
PROVIDERS: Emergency Medicine; Internal Medicine; ADMIT Internal Medicine
DX: A41.9 Sepsis, unspecified organism (principal); J15.6 Pneumonia due to other Gram-negative bacteria; J96.01 Acute respiratory failure with hypoxia; D75.81 Myelofibrosis; N18.3 Chronic kidney disease, stage 3 (moderate); D64.9 Anemia, unspecified; T38.0X5A Adverse effect of glucocorticoids and synthetic analogues, initial encounter; E11.22 Type 2 diabetes mellitus with diabetic chronic kidney disease; I12.9 Hypertensive chronic kidney disease with stage 1 through stage 4 chronic kidney disease, or unspecified chronic kidney disease; E11.65 Type 2 diabetes mellitus with hyperglycemia; D69.6 Thrombocytopenia, unspecified; Z79.82 Long term (current) use of aspirin; Z85.46 Personal history of malignant neoplasm of prostate; Z86.73 Personal history of transient ischemic attack (TIA), and cerebral infarction without residual deficits; Z88.0 Allergy status to penicillin; Z82.49 Family history of ischemic heart disease and other diseases of the circulatory system; Z79.899 Other long term (current) drug therapy

== ENCOUNTER → 2018-09-03 | Outpatient (CLI) | payer OTHER ==
[~2018-09-03] MED LIST changes: +AZITHROMYCIN 2250 MG PO; +CEFDINIR300 MG PO; +LASIX 40 MG TAB40 M2 PO; +LOPRESSOR50 PO; +MUCINEX600 MG PO; +PREDNISONE 10 M10 MG PO; +VENTOLIN HFA 1818 GM INH
== END ==
LOC: M.ULTRA 12:16
DX: M79.9 Soft tissue disorder, unspecified (principal); T14.8XXA Other injury of unspecified body region, initial encounter

== ENCOUNTER 2019-07-19 09:23 | Inpatient (IN) | payer OTHER ==
[~2019-07-19] VITALS: Ht 185.4 cm; Wt 84.5 kg
[~2019-07-19 09:23] MED LIST changes: -PRILOSEC 20 MG20 MG PO; +PRILOSEC PO
[2019-07-19 09:30] VITALS: BP 143/72
[2019-07-19] MEDS ORDERED: GLIPIZIDE 10 MG10 MG PO (09:36)
[2019-07-19] MEDS ORDERED: CARVEDILOL12.5 MG PO (09:38)
[2019-07-19 10:13] LABS: HEMOGLOBIN 10.4 gm/dL (14.0-18.0); MCH 26.9 pg (26.0-34.0); MCHC 33.6 g/dL (28.0-37.0); MCV 80.1 fL (80.0-100.0); MPV 7.7 fl. (7.2-11.1); NUCLEATED RBCS 1 /100WBC; PLATELET COUNT* 155 thou/uL (150-400); RBC 3.87 mil/uL (4.50-6.00); RDW-CV 18.2 % (10.5-14.5); WBC 37.4 thou/uL (4.0-11.0)
[2019-07-19 10:24] LABS: CALCIUM 9.3 mg/dL (8.5-10.1); POTASSIUM 4.9 mmol/L (3.5-5.1)
[2019-07-19 10:36] LABS: ALBUMIN 4.1 g/dL (3.4-5.0); TOTAL BILIRUBIN 0.9 mg/dL (<0.1-1.0); TOTAL PROTEIN 7.5 g/dL (6.4-8.2)
--- NOTE | 2019-07-19 10:36 | EKG ---
[place] [address] ELECTROCARDIOGRAM REPORT Name: LUISA TEE Room: [facility]#: [id number] Admission: 07/19/19 Attend Phys: Discharge: Date of : 39 Report #: [id number] THIS REPORT FOR: //name// [facility] ED Test Date: 2019-07-19 Test Time: 10:04:10 Pat Name: LUISA TEE Department: Room: Gender: M Internal Grinder: : 1940 Requested By: Tomi Bacon Order Number: [id number] MD: Solo Velazquez Measurements Intervals [place] Rate: 51 P: -33 MI: 366 QRS: -15 QRSD: 81 T: 26 QT: 431 QTc: 397 Interpretive Statements Sinus bradycardia poor r wave progression Prolonged MI interval Inferior infarct, old Compared to ECG 08/17/2018 09:00:25 no change Electronically Signed On 07-19-2019 10:35:55 TRASH COLLECTOR SUPERVISOR by Solo Velazquez [email or web address] <ELECTRONICALLY SIGNED> By: Solo Velazquez MD, [facility] 07/19/19 1035 1004 1004 Solo Vealzquez MD, FACC /EPI
[2019-07-19 10:47] LABS: INFLUENZA A ANTIGEN Negative (Negative); INFLUENZA B ANTIGEN Negative (Negative)
[2019-07-19 10:54] LABS: ABSOLUTE EOSINOPHILS 0.4 thou/uL (0.0-0.7); ABSOLUTE LYMPHOCYTES 1.5 thou/uL (0.8-5.3); ABSOLUTE MONOCYTES 5.2 thou/uL (0.0-1.2); ABSOLUTE NEUTROPHILS 30.3 thou/uL (1.6-8.1); METAMYELOCYTES 2 %; MYELOCYTES 7 %; PLATELET ESTIMATE ADEQUATE
[2019-07-19 12:55] VITALS: BP 115/55
[2019-07-19 15:33] VITALS: BP 151/81
[2019-07-19 20:00] VITALS: BP 139/89
[2019-07-20] VITALS: BP 139/67
[2019-07-20 04:00] VITALS: BP 136/46
[2019-07-20 07:51] VITALS: BP 117/56
[2019-07-20 11:06] LABS: URINE BILIRUBIN NEGATIVE (Negative); URINE BLOOD TRACE (Negative); URINE CLARITY CLEAR; URINE COLOR YELLOW; URINE GLUCOSE-RANDOM NEGATIVE (Negative); URINE KETONES NEGATIVE (Negative); URINE LEUKOCYTES NEGATIVE (Negative); URINE NITRITE NEGATIVE (Negative); URINE PROTEIN 1+ (Negative); URINE UROBILINOGEN 0.2 E.U./dl (0.2-1.0)
[2019-07-20 11:48] VITALS: BP 127/61
[2019-07-20 11:52] LABS: ABSOLUTE BASOPHILS 1.3 thou/uL (0.0-0.2); ABSOLUTE EOSINOPHILS 0.3 thou/uL (0.0-0.7); ABSOLUTE LYMPHOCYTES 0.8 thou/uL (0.8-5.3); ABSOLUTE MONOCYTES 4.3 thou/uL (0.0-1.2); ABSOLUTE NEUTROPHILS 21.7 thou/uL (1.6-8.1); BASOPHILS 4.7 %; EOSINOPHILS 0.9 %; HEMATOCRIT 26.7 % (42.0-52.0); HEMOGLOBIN 8.9 gm/dL (14.0-18.0); LYMPHOCYTES 2.8 %; MCH 26.5 pg (26.0-34.0); MCHC 33.4 g/dL (28.0-37.0); MCV 79.5 fL (80.0-100.0); MONOCYTES 15.2 %; MPV 7.8 fl. (7.2-11.1); NUCLEATED RBCS 1 /100WBC; PLATELET COUNT* 127 thou/uL (150-400); POLYS 76.4 %; RBC 3.36 mil/uL (4.50-6.00); RDW-CV 17.6 % (10.5-14.5); WBC 28.4 thou/uL (4.0-11.0)
[2019-07-20 11:57] LABS: CALCIUM 8.7 mg/dL (8.5-10.1); CREATININE 1.7 mg/dL (0.6-1.3); POTASSIUM 4.3 mmol/L (3.5-5.1)
[2019-07-20 16:00] VITALS: BP 131/59
[2019-07-20 20:00] VITALS: BP 167/51
[2019-07-21] VITALS: BP 125/44
[2019-07-21 04:00] VITALS: BP 120/50
--- NOTE | 2019-07-21 04:36 | CON ---
[address] [address] CONSULTATION Name: LUISA TEE Room: [address] IN [place].#: [id number] Admission: 07/19/19 Attend Phys: Alvarado Borges Discharge: Date of : 39 Report #: [id number] THIS REPORT FOR: //name// CC: Dianelys Hooks DATE OF SERVICE: 07/20/2019 INFECTIOUS DISEASE CONSULTATION ATTENDING PHYSICIAN: Devonte Hooks MD REASON FOR CONSULTATION: Left pneumonia. HISTORY OF PRESENT ILLNESS: An 79-year-old white man readmitted with pneumonia, apparently had similar problems a year ago or thereabouts. Some cough. No fever. Yellow sputum production. PAST MEDICAL HISTORY: Chronic kidney disease, anemia of chronic disease, myelofibrosis, systolic and diastolic congestive heart failure. DRUG ALLERGIES: PENICILLIN. MEDICATIONS: The patient is currently on treatment with aspirin, benzonatate, atorvastatin, insulin lispro, Atrovent and albuterol inhalation treatment, cefepime 1 g b.i.d., received azithromycin 500 mg 1 dose and Rocephin 1 g IV 1 dose. SOCIAL HISTORY: . Grown children, they live around the house. Retired. REVIEW OF SYSTEMS: See H and P and as above. PHYSICAL EXAMINATION: GENERAL: Well-developed elderly man, not toxic looking. VITAL SIGNS: Temperature maximum since admission 99, pulse 81, respirations 18, BP 130/46, O2 saturation 98% on room air. HEENMT: Within range. NECK: Supple. LUNGS: Crackles, rhonchi, left base posteriorly. HEART: Ejection murmur, apex. ABDOMEN: Lower abdominal scar from prostate cancer. GENITALIA AND RECTAL: Deferred. EXTREMITIES: Normal. NEUROLOGIC: Grossly within normal limits. LABORATORY DATA: Sodium 137, potassium 4.9, BUN 36, creatinine 2, [place] [address] CONSULTATION Name: LUISA TEE Room: [address] IN [facility]#: [id number] Admission: 07/19/19 Attend Phys: Alvarado Borges Discharge: Date of : 39 Report #: [id number] NT-proBNP 1288, elevated. WBC 37,400, hemoglobin 10.4 g/dL, platelets 155,000. White blood cell count differential reveals 72% segmented neutrophils. Rapid influenza A and B test negative. Urinalysis pending. MICROBIOLOGY DATA: Blood cultures and sputum culture were obtained, results are pending. RADIOLOGY EVALUATION: Chest x-ray revealed enlarged heart and left basilar pulmonary infiltrate, pneumonia. ASSESSMENT: 1. Left lower lobe pneumonia, undetermined etiology. 2. Chronic kidney disease. 3. Myelofibrosis. 4. Congestive heart failure. SUGGESTIONS: Recommend continue cefepime 1 g every 12 hours and Zithromax 500 mg IV daily for [address] Hooks, thank you for requesting my suggestions. <ELECTRONICALLY SIGNED> By: Alvin rOopeza MD 07/21/19 0436 0522 [id number] Oropeza MD /nt
[2019-07-21 05:30] LABS: EOSINOPHILS 1.2 %; HEMATOCRIT 27.3 % (42.0-52.0); HEMOGLOBIN 9.2 gm/dL (14.0-18.0); LYMPHOCYTES 1.8 %; MCH 26.7 pg (26.0-34.0); MCHC 33.8 g/dL (28.0-37.0); MCV 78.8 fL (80.0-100.0); MONOCYTES 13.2 %; MPV 8.2 fl. (7.2-11.1); PLATELET COUNT* 117 thou/uL (150-400); POLYS 82.2 %; RBC 3.47 mil/uL (4.50-6.00); RDW-CV 17.6 % (10.5-14.5); WBC 31.4 thou/uL (4.0-11.0)
[2019-07-21 05:31] LABS: ABSOLUTE BASOPHILS 0.5 thou/uL (0.0-0.2); ABSOLUTE EOSINOPHILS 0.4 thou/uL (0.0-0.7); ABSOLUTE LYMPHOCYTES 0.6 thou/uL (0.8-5.3); ABSOLUTE MONOCYTES 4.2 thou/uL (0.0-1.2); ABSOLUTE NEUTROPHILS 25.9 thou/uL (1.6-8.1); BASOPHILS 1.6 %; CALCIUM 9.1 mg/dL (8.5-10.1); CREATININE 1.6 mg/dL (0.6-1.3); MAGNESIUM 2.3 mg/dL (1.8-2.4); NUCLEATED RBCS 1 /100WBC; POTASSIUM 4.7 mmol/L (3.5-5.1)
[2019-07-21 12:30] VITALS: BP 137/45
[2019-07-21 16:26] VITALS: BP 156/59
[2019-07-21 19:50] VITALS: BP 150/61
[2019-07-21 20:10] VITALS: BP 146/62
[2019-07-22] VITALS: BP 120/68
[2019-07-22 04:00] VITALS: BP 138/54
[2019-07-22 04:58] LABS: HEMOGLOBIN 8.6 gm/dL (14.0-18.0); MCH 26.9 pg (26.0-34.0); MCHC 34.4 g/dL (28.0-37.0); MCV 78.2 fL (80.0-100.0); MPV 8.2 fl. (7.2-11.1); RBC 3.2 mil/uL (4.50-6.00); RDW-CV 17.9 % (10.5-14.5); WBC 28.2 thou/uL (4.0-11.0)
[2019-07-22 05:23] LABS: CALCIUM 9.2 mg/dL (8.5-10.1); CREATININE 1.7 mg/dL (0.6-1.3); MAGNESIUM 2.4 mg/dL (1.8-2.4); POTASSIUM 4.3 mmol/L (3.5-5.1)
[2019-07-22 08:00] VITALS: BP 148/79
[2019-07-22 11:33] VITALS: BP 138/51
--- NOTE | 2019-07-22 12:36 | CON ---
[address] [address] CONSULTATION Name: LUISA TEE Room: [address] IN M.R.#: [id number] Admission: 07/19/19 Attend Phys: Alvarado Borges Discharge: Date of : 39 Report #: [id number] THIS REPORT FOR: //name// CC: Dianelys Leavitt DO Devonte Hooks DATE OF SERVICE: 07/19/2019 HISTORY OF PRESENT ILLNESS: The patient is an 79-year-old white male who I was asked to see in the hospital today after complained of being short of breath. The patient has an extensive past medical history. He actually had an echocardiogram done in 06/2018 here at [facility] that showed ejection fraction only 30%-35% with mild aortic sclerosis. He has had a previous nuclear stress test that showed no evidence of ischemia. He was actually followed by my partner, Dr. Anthony Cowan. He apparently did have an episode of MAT and AFib could not be excluded. Subsequent echocardiogram showed normalization of his ejection fraction. The patient apparently was put on Xarelto in the past but due to the hematoma, was taken off Xarelto. Dr. Cowan just saw him in the office 10 days ago. At that time, the patient has no complaint. The patient was switched from metoprolol to carvedilol, but apparently has been lightheaded since that time. He is not very active, but notes 2 days ago, he developed weakness, cough, shortness of breath. His brought him to the Emergency Room today, he is found to be pneumonia. He is admitted for further evaluation and treatment. He denies any chest pain, palpitations or syncope. No orthopnea. PAST MEDICAL HISTORY: Otherwise, hernia repair, prostate surgery. He has a previous history of chronic kidney disease, previous stroke, hyperlipidemia, hypertension, myelofibrosis, and diabetes. MEDICATIONS: Atorvastatin, carvedilol, Lasix, Neurontin, glipizide, Prilosec. ALLERGIES: HE HAS AN ALLERGY TO PENICILLIN. FAMILY HISTORY: His brother had heart disease. SOCIAL HISTORY: He is . He and his live here in [place]. No smoking or alcohol abuse. REVIEW OF SYSTEMS: He has had no history of asthma, peptic ulcer disease, liver disease, cancer, psychiatric illness, chronic skin condition. PHYSICAL EXAMINATION: GENERAL: Revealed an elderly male, lying in bed, appeared in no acute distress. VITAL SIGNS: He had a blood pressure of 150/80, pulse 80, [place] [address] CONSULTATION Name: LUISA TEE Room: [address] IN [place].R.#: [id number] Admission: 07/19/19 Attend Phys: Alvarado Borges Discharge: Date of : 38 Report #: [id number] HEENT: He was anicteric. Conjunctivae pink. Mucous membranes moist. NECK: Veins nondistended. No carotid bruits. CHEST: Revealed decreased breath sounds. CARDIOVASCULAR: Regular rate and rhythm, grade 2 systolic ejection murmur. ABDOMEN: Soft. EXTREMITIES: Had no edema. Dorsalis pedis pulse cannot be palpated. SKIN: Cool and dry. NEUROLOGIC: Nonfocal. RADIOLOGICAL DATA: His ECG on admission showed a sinus bradycardia with first-degree AV block, poor R-wave progression. His workup in the Emergency Room today, portable chest x-ray showed pneumonia, left lower lung, tortuous aorta. LABORATORY DATA: Sodium 137, BUN 36, creatinine 2.0, it has been as high as 2.6 in the past. Liver function studies were normal. Troponin 0.06. BNP 1288. White blood cell count was 37.4, hemoglobin 10.4, hematocrit 31, platelet count 155,000. IMPRESSION AND RECOMMENDATIONS: 1. Pneumonia. 2. Myelofibrosis. 3. Anemia. 4. Chronic kidney disease. 5. Diabetes. 6. Hyperlipidemia. The patient is on a statin drug. 7. Previous history of MAT. No clinical recurrences. <ELECTRONICALLY SIGNED> By: Solo Velazquez MD, FACC 07/22/19 1236 1613 0026Dajoaquina Velazquez MD, FACC /nt
[2019-07-22 16:00] VITALS: BP 157/96
[2019-07-23] VITALS: BP 96/63
[2019-07-23 04:00] VITALS: BP 141/51
[2019-07-23 05:10] LABS: HEMATOCRIT 24.6 % (42.0-52.0); HEMOGLOBIN 8.5 gm/dL (14.0-18.0); MCH 27.1 pg (26.0-34.0); MCHC 34.7 g/dL (28.0-37.0); MPV 8.1 fl. (7.2-11.1); RBC 3.15 mil/uL (4.50-6.00); RDW-CV 17.8 % (10.5-14.5); WBC 27.6 thou/uL (4.0-11.0)
[2019-07-23 05:28] LABS: CALCIUM 9.2 mg/dL (8.5-10.1); CREATININE 1.7 mg/dL (0.6-1.3); POTASSIUM 4.1 mmol/L (3.5-5.1)
[2019-07-23 08:15] VITALS: BP 148/64
[2019-07-23 11:30] VITALS: BP 142/64
[2019-07-23] MEDS ORDERED: MEDROLDOSEPACK PO (13:30)
[2019-07-23] MEDS ORDERED: PROAIR HFA8.5 GM INH (13:30)
[2019-07-23] MEDS ORDERED: CEFDINIR300 MG PO (13:30)
[2019-07-23 15:29] VITALS: BP 142/64
== END 2019-07-23 16:38 | disposition home or self-care (01) | DRG 177 ==
LOC: M.ERS 09:23 → M.TBA-ER 11:18 → M.2W 11:18
PROVIDERS: Emergency Medicine Emergency Medical Services; Family Medicine; Internal Medicine; ADMIT Internal Medicine
DX: J15.6 Pneumonia due to other Gram-negative bacteria (principal); G92 Toxic encephalopathy; N17.0 Acute kidney failure with tubular necrosis; D75.81 Myelofibrosis; I13.0 Hypertensive heart and chronic kidney disease with heart failure and stage 1 through stage 4 chronic kidney disease, or unspecified chronic kidney disease; I50.22 Chronic systolic (congestive) heart failure; E11.22 Type 2 diabetes mellitus with diabetic chronic kidney disease; N18.9 Chronic kidney disease, unspecified; E78.5 Hyperlipidemia, unspecified; D63.8 Anemia in other chronic diseases classified elsewhere; R00.1 Bradycardia, unspecified; R53.81 Other malaise; Z82.49 Family history of ischemic heart disease and other diseases of the circulatory system; Z86.73 Personal history of transient ischemic attack (TIA), and cerebral infarction without residual deficits; Z90.79 Acquired absence of other genital organ(s); Z85.6 Personal history of leukemia; Z79.82 Long term (current) use of aspirin; Z79.899 Other long term (current) drug therapy; Z88.0 Allergy status to penicillin

== ENCOUNTER 2019-07-29 18:55 | Inpatient (IN) | payer OTHER ==
[~2019-07-29] VITALS: Ht 185.4 cm; Wt 82.3 kg
[~2019-07-29 18:55] MED LIST changes: +CARVEDILOL12.5 MG PO; +MEDROLDOSEPACK PO; +PROAIR HFA8.5 GM INH
[2019-07-29 19:03] VITALS: BP 193/58
[2019-07-29 19:41] LABS: HEMATOCRIT 30.1 % (42.0-52.0); MCH 26.2 pg (26.0-34.0); MCHC 33.4 g/dL (28.0-37.0); MCV 78.6 fL (80.0-100.0); MPV 8.6 fl. (7.2-11.1); NUCLEATED RBCS 1 /100WBC; PLATELET COUNT* 202 thou/uL (150-400); RBC 3.83 mil/uL (4.50-6.00); RDW-CV 18.5 % (10.5-14.5)
[2019-07-29 19:51] LABS: INR 1.2; PROTIME 12.1 Seconds (9.20-11.50)
[2019-07-29 19:55] LABS: WBC 78.6 thou/uL (4.0-11.0)
[2019-07-29 20:07] LABS: ALBUMIN 3.9 g/dL (3.4-5.0); CALCIUM 9.4 mg/dL (8.5-10.1); CREATININE 1.6 mg/dL (0.6-1.3); TOTAL BILIRUBIN 0.6 mg/dL (<0.1-1.0); TOTAL PROTEIN 7.8 g/dL (6.4-8.2)
[2019-07-29 20:14] LABS: POTASSIUM 5.4 mmol/L (3.5-5.1)
[2019-07-29 20:38] LABS: ABSOLUTE EOSINOPHILS 0.8 thou/uL (0.0-0.7); ABSOLUTE LYMPHOCYTES 2.4 thou/uL (0.8-5.3); ABSOLUTE MONOCYTES 5.5 thou/uL (0.0-1.2); METAMYELOCYTES 9 %; MYELOCYTES 7 %; PROMYELOCYTES 1 %
[2019-07-29 20:40] LABS: PLATELET ESTIMATE ADEQUATE
[2019-07-29 20:41] LABS: ANISOCYTOSIS 1+; LARGE PLATELETS OCCASIONAL
[2019-07-29 20:42] LABS: POLYCHROMASIA Occasional
[2019-07-29 21:17] LABS: URINE BILIRUBIN NEGATIVE (Negative); URINE BLOOD NEGATIVE (Negative); URINE CLARITY CLEAR; URINE COLOR YELLOW; URINE GLUCOSE-RANDOM NEGATIVE (Negative); URINE KETONES NEGATIVE (Negative); URINE LEUKOCYTES-REFLEX NEGATIVE (Negative); URINE NITRITE-REFLEX NEGATIVE (Negative); URINE PROTEIN 1+ (Negative); URINE SPECIFIC GRAVITY 1.015 (1.005-1.030); URINE UROBILINOGEN 0.2 E.U./dl (0.2-1.0)
[2019-07-29 21:56] VITALS: BP 145/56
[2019-07-29 22:23] VITALS: BP 146/56
[2019-07-29] MEDS ORDERED: METFORMIN HCL500 M3 PO (22:32)
[2019-07-30 04:00] VITALS: BP 154/58
--- NOTE | 2019-07-30 06:03 | NUR ---
PT ADMITTED TO ROOM 205 DURING THIS SHIFT; VSS, A+OX4, UP WITH SBA, ELEVATED POTASSIUM. HE IS ABLE TO COMMUNICATE HIS NEEDS TO STAFF EFFECTIVELY. HE HAS DENIED THE NEED FOR PAIN MEDICATION UP TO THIS TIME. HEME/ONC CONSULT FOR THIS MORNING ORDERED.
[2019-07-30 08:00] VITALS: BP 123/39
--- NOTE | 2019-07-30 09:44 | EKG ---
[place] [address] ELECTROCARDIOGRAM REPORT Name: LUISA TEE Room: [address] ADM IN [facility].#: [id number] Admission: 07/29/19 Attend Phys: Yamile Graham MD Discharge: Date of : 38 Report #: [id number] THIS REPORT FOR: //name// [facility] ED Test Date: 2019-07-29 Test Time: 19:07:28 Pat Name: LUISA TEE Department: Room: [facility] Gender: M Record Filing Clerk: [place] : 1940 Requested By: Skye Hernandez Order Number: [id number] MD: Solo Velazquez Measurements Intervals [place] Rate: 49 P: 76 [place]: 326 QRS: -13 QRSD: 82 T: 40 QT: 438 QTc: 396 Interpretive Statements Sinus bradycardia Supraventricular bigeminy Prolonged [place] interval Anterior infarct, old Minimal ST depression, lateral leads Compared to ECG 07/19/2019 10:04:10 Atrial premature complex(es) now present Myocardial infarct finding still present Electronically Signed On 07-30-2019 9:44:15 DATA POWER CONSULTANT by Solo Velazquez [email or web address] <ELECTRONICALLY SIGNED> By: Solo Velazquez MD, FACC 07/30/19 0944 190 06 Solo Velazquez MD, FACC /EPI
--- NOTE | 2019-07-30 09:58 | NUR ---
ASSUMED CARE OF PATIENT THIS AM AT 0730. PATIENT IS ALERT AND ORIENTED X 4. HE DENIES PAIN THIS AM. HE HAS BEEN ASSISTED UP TO THE BATHROOM THIS AM. PATIENT IS TAKING HIS DIET WELL. WILL CONTINUE TO MONITOR. TELE SHOWS SINUS MEDHAT WITH A 1DAVB.
[2019-07-30 12:00] VITALS: BP 168/65
[2019-07-30 19:37] VITALS: BP 154/63
[2019-07-30 20:00] VITALS: BP 153/59
--- NOTE | 2019-07-30 20:00 | NUR ---
RECEIVED REPORT AND ASSUMED CARE OF PT, ASSESSMENT COMPLETED. GAIT STEADY TO AND FROM BR. NO COMPLAINTS VOICED. TELEMETRY ON SHOWING SB WITH 1ST AVB. WILL CONT TO MONITOR AND ASSIST NEEDED.
[2019-07-31] VITALS: BP 155/65
[2019-07-31 04:00] VITALS: BP 106/55
--- NOTE | 2019-07-31 05:35 | NUR ---
SLEPT WELL AFTER MN, SON WAS HERE VISITING. GAIT STEADY TO AND FROM BR. DENIES ANY DISCOMFORT. ASSESSMENT UNCHANGED. TELEMETRY CONT TO SHOW SB WITH 1ST AVB. HS GOALS OF REST AND SAFETY ACHIEVED. HOURLY ROUNDING OBSERVED.
[2019-07-31 08:15] VITALS: BP 140/87
[2019-07-31 12:54] VITALS: BP 145/53
[2019-07-31 13:50] LABS: ABSOLUTE LYMPHOCYTES 8.9 thou/uL (0.8-5.3); ABSOLUTE MONOCYTES 0.6 thou/uL (0.0-1.2); ABSOLUTE NEUTROPHILS 56.3 thou/uL (1.6-8.1); EOSINOPHILS 1.1 %; HEMATOCRIT 28.8 % (42.0-52.0); HEMOGLOBIN 9.5 gm/dL (14.0-18.0); LYMPHOCYTES 13.4 %; MCH 26.4 pg (26.0-34.0); MCHC 32.9 g/dL (28.0-37.0); MCV 80.3 fL (80.0-100.0); MONOCYTES 0.9 %; MPV 8.4 fl. (7.2-11.1); NUCLEATED RBCS 1 /100WBC; PLATELET COUNT* 170 thou/uL (150-400); POLYS 84.6 %; RBC 3.59 mil/uL (4.50-6.00); RDW-CV 18.8 % (10.5-14.5)
[2019-07-31 13:52] LABS: ABSOLUTE EOSINOPHILS 0.7 thou/uL (0.0-0.7)
[2019-07-31 13:53] LABS: WBC 66.5 thou/uL (4.0-11.0)
[2019-07-31 15:59] VITALS: BP 134/36
--- NOTE | 2019-07-31 18:51 | NUR ---
I ASSUMED CARE OF THE PATIENT AT 0700. HE IS ALERT AND ORIENTED X4 AND IS UP WITH SBA. BED IS IN THE LOW LOCKED POSITION AND CALL LIGHT IS IN REACH. HOURLY ROUNDING IS COMPLETED AND PATIENT NEEDS ARE MET. PAIN IS DENIED. CRITICAL LABS WERE GIVEN TO THE HIMS. VITAL SIGNS ARE STABLE. IS AT THE BEDSIDE MOST OF THE DAY. HE IS PROGRESSING TOWARD HIS GOALS. WILL CONTINUE TO MONITOR.
[2019-07-31 20:49] VITALS: BP 139/50
[2019-08-01] VITALS: BP 155/53
[2019-08-01 04:00] VITALS: BP 141/54
[2019-08-01 05:04] LABS: HEMOGLOBIN 9.5 gm/dL (14.0-18.0); MCH 26.9 pg (26.0-34.0); MCHC 33.8 g/dL (28.0-37.0); MCV 79.5 fL (80.0-100.0); MPV 8.1 fl. (7.2-11.1); NUCLEATED RBCS 1 /100WBC; PLATELET COUNT* 165 thou/uL (150-400); RBC 3.52 mil/uL (4.50-6.00); RDW-CV 18.3 % (10.5-14.5)
[2019-08-01 05:15] LABS: ALBUMIN 3.4 g/dL (3.4-5.0); CALCIUM 8.5 mg/dL (8.5-10.1); CREATININE 1.3 mg/dL (0.6-1.3); POTASSIUM 4.9 mmol/L (3.5-5.1); TOTAL BILIRUBIN 0.5 mg/dL (<0.1-1.0); TOTAL PROTEIN 6.8 g/dL (6.4-8.2)
[2019-08-01 05:26] LABS: WBC 65.2 thou/uL (4.0-11.0)
[2019-08-01 05:57] LABS: ABSOLUTE LYMPHOCYTES 3.9 thou/uL (0.8-5.3); ABSOLUTE NEUTROPHILS 57.4 thou/uL (1.6-8.1); ANISOCYTOSIS 1+; METAMYELOCYTES 5 %; MYELOCYTES 4 %; PROMYELOCYTES 1 %
[2019-08-01 05:58] LABS: OVALOCYTES Occasional; PLATELET ESTIMATE ADEQUATE; POIKILOCYTOSIS 1+; POLYCHROMASIA 1+; TEARDROPS Occasional
--- NOTE | 2019-08-01 05:58 | NUR ---
PT IS ABLE TO COMMUNICATE HIS NEEDS TO STAFF WITH MINOR DIFFICULTY; HE IS [id number], BUT HAS HEARING AIDS. HE HAS DENIED THE NEED FOR PAIN MEDICATION UP TO THIS TIME. LIKELY DISCHARGE LATER TODAY.
[2019-08-01 05:59] LABS: MICROCYTES 1+
[2019-08-01 08:25] VITALS: BP 139/64
--- NOTE | 2019-08-01 11:56 | NUR ---
Spoke with , anticipates that Pt will need skilled at ut. CM confirmed with [facility] that Pt would not be able to admit to skilled on his current medication, [place], d/t the cost ($15,00/month) and Pt would not be able to bring his home meds. Pt would either need to stop taking the medication while in skilled vs. dc home with HH/outpt therapy. Following.
--- NOTE | 2019-08-01 13:46 | 2DMMODE ---
[place] [address] 2 D/M-MODE ECHOCARDIOGRAM Name: LUISA TEE Room: [address] IN .R.#: [id number] Admission: 07/29/19 Attend Phys: Yamile Graham, Discharge: Date of : 38 Date of Service: 08/01/19 1346 Report #: [id number] THIS REPORT FOR: //name// APPROVED REPORT Study performed: 08/01/2019 12:42:30 EXAM: Comprehensive 2D, Doppler, and color-flow Echocardiogram Patient Location: Bedside BSA: 2.04 HR: 46 bpm BP: 139/64 mmHg Other Information Study Quality: Good Indications Dyspnea 2D Dimensions IVSd: 13.87 (7-11mm) LVOT Diam: 18.53 (18-24mm) LVDd: 53.85 mm PWd: 13.40 (7-11mm) Ascending Ao: 26.59 (22-36mm) LVDs: 36.35 (25-40mm) Aortic Root: 24.38 mm Volumes Left Atrial Volume (Systole) LA ESV Index: 30.80 mL/m2 Aortic Valve AoV Peak Rickey.: 2.80 m/s AO Peak Gr.: 31.43 mmHg LVOT Max P.99 mmHg AO Mean Gr.: 12.45 mmHg LVOT Mean P.00 mmHg LVOT Max V: 1.00 m/s AO V2 VTI: 63.44 cm LVOT Mean V: 0.65 m/s ROBERTH (VTI): 1.02 cm2 LVOT V1 VTI: 24.08 cm Mitral Valve E/A Ratio: 1.25 MV Decel. Time: 169.90 ms MV E Max Rickey.: 0.86 m/s MV PHT: 49.27 ms MVA (PHT): 4.47 [place] [address] 2 D/M-MODE ECHOCARDIOGRAM Name: LUISA TEE Room: [address] IN .R.#: [id number] Admission: 07/29/19 Attend Phys: Yamile Graham, Discharge: Date of : 38 Date of Service: 08/01/19 1346 Report #: [id number] TDI E/Lateral E': 9.56 E/Medial E': 10.75 Medial E' Rickey.: 0.08 m/s Lateral E' Rickey.: 0.09 m/s Pulmonary Valve PV Peak Rickey.: 0.73 m/s PV Peak Gr.: 2.15 mmHg Tricuspid Valve RAP Estimate: 5.00 mmHg TR Peak Gr.: 38.15 mmHg RVSP: 43.15 mmHg PA Pressure: 43.15 mmHg Left Ventricle The left ventricle is normal size. There is normal LV segmental wall motion. Mild concentric left ventricular hypertrophy. Left ventricular systolic function is normal. The left ventricular ejection fraction is within the normal range. LVEF is 60-65%. Right Ventricle Right ventricle is mildly dilated. The right ventricular systolic function is normal. Atria Left atrium is mildly dilated. The right atrium size is normal. Aortic Valve The Aortic valve is sclerotic. Trace aortic regurgitation. Mild aortic stenosis. Mitral Valve The mitral valve is normal in structure. Mild mitral annular calcification. Mild mitral regurgitation. No evidence of mitral valve stenosis. Tricuspid Valve The tricuspid valve is normal in structure. Mild tricuspid regurgitation. estimated pa pressure 45 mm Hg Pulmonic Valve Pulmonic valve is not well visualized. There is no pulmonic [place]ular [place] [id number] 2 D/M-MODE ECHOCARDIOGRAM Name: LUISA TEE Room: [address] IN [facility]#: [id number] Admission: 07/29/19 Attend Phys: Yamile Graham, Discharge: Date of : 38 Date of Service: 08/01/19 1346 Report #: [id number] The aortic root is normal in size. IVC is normal in size and collapses >50% with inspiration. Pericardium There is no pericardial effusion. <Conclusion> Mild concentric left ventricular hypertrophy. LVEF is 60-65%. Left atrium is mildly dilated. Mild aortic stenosis. Mild mitral regurgitation. Mild tricuspid regurgitation. estimated pa pressure 45 mm Hg <ELECTRONICALLY SIGNED> By: Solo Velazquez MD, FACC 08/01/19 1346 45 Solo Velazquez MD, FACC /INF
[2019-08-01 17:02] VITALS: BP 121/49
[2019-08-01 20:15] VITALS: BP 146/57
[2019-08-02 00:21] VITALS: BP 146/59
--- NOTE | 2019-08-02 03:57 | NUR ---
ASSUMED CARE OF PT AT 1900. PT IS ALERT AND ORIENTED. PERRLA. NO COMPLAINTS OF PAIN. PT IS IN SINUS BRADYCARDIA. RATE IS USUALLY IN THE LOWER 40'S. HOWEVER, HEART RATE HAS DROPPED INTO THE 20'S SEVERAL TIMES. CARDIOLOGY AWARE. PT IS SLEEPING QUIETLY IN BED. RESPIRATIONS ARE EVEN AND NONLABORED. WILL CONTINUE TO MONITOR PT.
[2019-08-02 04:00] VITALS: BP 148/88
[2019-08-02 04:01] LABS: ABSOLUTE BASOPHILS 2.5 thou/uL (0.0-0.2); ABSOLUTE EOSINOPHILS 0.6 thou/uL (0.0-0.7); ABSOLUTE LYMPHOCYTES 3.2 thou/uL (0.8-5.3); ABSOLUTE MONOCYTES 2.9 thou/uL (0.0-1.2); BASOPHILS 4.5 %; EOSINOPHILS 1.1 %; HEMATOCRIT 27.4 % (42.0-52.0); HEMOGLOBIN 9.1 gm/dL (14.0-18.0); LYMPHOCYTES 5.7 %; MCH 26.2 pg (26.0-34.0); MCHC 33.2 g/dL (28.0-37.0); MONOCYTES 5.2 %; MPV 7.8 fl. (7.2-11.1); NUCLEATED RBCS 1 /100WBC; PLATELET COUNT* 153 thou/uL (150-400); POLYS 83.5 %; RBC 3.47 mil/uL (4.50-6.00); RDW-CV 18.6 % (10.5-14.5)
[2019-08-02 04:26] LABS: CALCIUM 8.3 mg/dL (8.5-10.1); CREATININE 1.6 mg/dL (0.6-1.3); POTASSIUM 4.5 mmol/L (3.5-5.1)
[2019-08-02 05:36] LABS: WBC 56.3 thou/uL (4.0-11.0)
[2019-08-02 07:45] VITALS: BP 168/63
[2019-08-02] MEDS ORDERED: COZAAR 50 MG TA50 M1 PO (11:26)
--- NOTE | 2019-08-02 12:24 | NUR ---
Pt walked 300ft with therapy, Pt should be safe to dc to home once medically stable.
[2019-08-02 13:52] VITALS: BP 168/63
--- NOTE | 2019-08-02 13:56 | CON ---
[address] [address] CONSULTATION Name: LUISA TEE Room: [address] IN M.R.#: [id number] Admission: 07/29/19 Attend Phys: Yamile Graham MD Discharge: Date of : 39 Report #: [id number] THIS REPORT FOR: //name// CC: ROBER Graham DATE OF SERVICE: 08/01/2019 CARDIOLOGY CONSULTATION HISTORY OF PRESENT ILLNESS: The patient is an 79-year-old white male who I was asked to see in the hospital today after he complained of feeling fatigued. The patient has an extensive past medical history. He actually presented here in 06/2018 with shortness of breath and found to have evidence of cardiomyopathy with ejection fraction of 30-35%. He underwent a nuclear stress test in 09/2018 that showed no evidence of ischemia with normalization of his ejection fraction. He has been followed by my partner, Dr. Cowan. He had a previous episode of MAT and AFib could not be excluded. He was placed on Xarelto in the past, but developed hematoma and was taken off of Xarelto. He was just seen by Dr. Cowan about 3 weeks ago. He was taken off metoprolol and switched to carvedilol. He was actually admitted to [facility] 2 weeks ago with pneumonia. He was evaluated and discharged. He was home for only about 5 days, but then complained of being weak and having no energy. He came back to the Emergency Room 2 days ago. He was admitted for further evaluation and treatment. He denied any fever, cough, or chest tightness. He does note some shortness of breath. No palpitations, syncope, or increasing edema. PAST MEDICAL HISTORY: Otherwise significant for hernia repair, prostate surgery. He has a history of chronic kidney disease. He had a previous stroke, hyperlipidemia, and hypertension. He has a history of myelofibrosis, followed by Oncology. He had previous transfusions. He has diabetes. MEDICATIONS: His current medications at this time include Lipitor, carvedilol, Lasix 3 times a week, Neurontin, glipizide, Prilosec. He is not on TRICIA inhibitor or ARB because of chronic kidney disease. He has been on a drug for his myelofibrosis by his oncologist. ALLERGIES: HE HAS AN ALLERGY TO PENICILLIN. FAMILY HISTORY: His brother had heart disease. SOCIAL HISTORY: He is . He and his live here in [place]. No smoking or alcohol abuse. REVIEW OF SYSTEMS: No history of asthma, peptic ulcer disease, liver disease, [place] [address] CONSULTATION Name: LUISA TEE Room: [address] IN M.R.#: [id number] Admission: 07/29/19 Attend Phys: Yamile Graham MD Discharge: Date of : 39 Report #: [id number] psychiatric illness, or chronic skin condition. PHYSICAL EXAMINATION: GENERAL: Revealed an elderly, frail-appearing male, sitting in a chair. He appeared in no distress. VITAL SIGNS: He had a blood pressure of 130/60, pulse of 60. He is afebrile. HEENT: He was anicteric. Conjunctivae are pink. Mucous membranes are moist. NECK: Veins do not appear distended. No carotid bruits. CHEST: Clear to auscultation. CARDIOVASCULAR: Regular rate and rhythm, grade 2 systolic ejection murmur. ABDOMEN: Soft. EXTREMITIES: Had no edema. SKIN: Warm and dry. NEUROLOGIC: Nonfocal. RADIOLOGICAL DATA: His ECG on admission showed a sinus bradycardia, first degree AV block, septal Q-waves were noted. His workup included a chest x-ray that showed cardiomegaly, normal pulmonary vasculature improved infiltrate at the left base. LABORATORY WORK: Sodium 140, BUN 38, creatinine 1.3, glucose 200. Liver function studies were normal. Recent white blood cell count was 65.2; hemoglobin 9.5; platelet count 165,000. IMPRESSION AND RECOMMENDATIONS: 1. Weakness. I would check thyroid function studies. Possibly related to pneumonia. 2. Cardiomyopathy. I would recommend a repeat echocardiogram. The patient is on a beta sandhya. If ejection fraction is less than 45%, I would consider adding an ARB or TRICIA inhibitor. 3. History of multifocal atrial tachycardia. No clinical recurrences. 4. Hyperlipidemia. The patient is on a statin drug. 5. Diabetes. 6. Previous stroke. No clinical recurrences. <ELECTRONICALLY SIGNED> By: Solo Velazquez MD, FACC 08/02/19 1356 1001 [id number] Velazquez MD, FACC /nt
[2019-08-02 14:25] VITALS: BP 168/63
--- NOTE | 2019-08-02 15:42 | NUR ---
PT IV REMOVED INTACT, VSS AND TEAM AWARE OF BRADYCARDIA. PT PROVIDED WITH HOME MEDICATION FROM PHARMACY. NO CONCERNS NOTED AT TIME OF DC. PT TAKEN OUT WITH HOSPITAL STAFF VIA WC TO HOME. WILL SIGN OFF AT THIS TIME
== END 2019-08-02 15:25 | disposition home or self-care (01) | DRG 840 ==
LOC: M.ERS 18:55 → M.2W 21:22 → M.TBA-ER 21:22 → M.2W 22:05
PROVIDERS: Emergency Medicine; Internal Medicine; ADMIT Internal Medicine
DX: C94.6 Myelodysplastic disease, not elsewhere classified (principal); N17.0 Acute kidney failure with tubular necrosis; E44.0 Moderate protein-calorie malnutrition; I42.9 Cardiomyopathy, unspecified; D75.81 Myelofibrosis; E87.5 Hyperkalemia; E11.22 Type 2 diabetes mellitus with diabetic chronic kidney disease; N18.9 Chronic kidney disease, unspecified; E78.5 Hyperlipidemia, unspecified; E86.0 Dehydration; I12.9 Hypertensive chronic kidney disease with stage 1 through stage 4 chronic kidney disease, or unspecified chronic kidney disease; R00.1 Bradycardia, unspecified; I35.0 Nonrheumatic aortic (valve) stenosis; Z85.46 Personal history of malignant neoplasm of prostate; Z88.0 Allergy status to penicillin; Z86.73 Personal history of transient ischemic attack (TIA), and cerebral infarction without residual deficits; Z82.49 Family history of ischemic heart disease and other diseases of the circulatory system; Z79.899 Other long term (current) drug therapy

== ENCOUNTER 2020-03-24 05:43 | Inpatient (IN) | payer OTHER ==
[~2020-03-24] VITALS: Ht 185.4 cm; Wt 80.7 kg
--- NOTE | ~2020-03-24 | PROC ---
[address] [address] PROCEDURE REPORT Name: LUISA TEE Room: [address] ADM IN M.R.#: [id number] Admission: 03/24/20 Attend Phys: Jin Heck MD Discharge: Date of : 39 Report #: [id number] THIS REPORT FOR: //name// cc: Dianelys Leavitt Anna S. DO ~ THIS REPORT FOR: //name// For GI report, please see the Provation report in [employer] 7 content. By: 1438Medical Records Staff JOEL /SIS
[~2020-03-24 05:43] MED LIST changes: +COZAAR 50 MG TA50 M1 PO; +METFORMIN HCL500 M3 PO
[2020-03-24 05:51] VITALS: BP 157/44
[2020-03-24] MEDS ORDERED: NIFEDIPINE ER30 M1 PO (05:58)
[2020-03-24 06:20] LABS: HEMATOCRIT 25.8 % (42.0-52.0); HEMOGLOBIN 8.4 gm/dL (14.0-18.0); MCH 24.3 pg (26.0-34.0); MCHC 32.7 g/dL (28.0-37.0); MCV 74.5 fL (80.0-100.0); NUCLEATED RBCS 1 /100WBC; PLATELET COUNT* 267 thou/uL (150-400); RBC 3.47 mil/uL (4.50-6.00); RDW-CV 20.8 % (10.5-14.5)
[2020-03-24 06:24] LABS: CALCIUM 8.2 mg/dL (8.5-10.1); CREATININE 1.8 mg/dL (0.6-1.3); POTASSIUM 4.5 mmol/L (3.5-5.1)
[2020-03-24 06:35] LABS: ALBUMIN 3.9 g/dL (3.4-5.0); TOTAL BILIRUBIN 0.6 mg/dL (<0.1-1.0); TOTAL PROTEIN 6.9 g/dL (6.4-8.2)
[2020-03-24 06:44] LABS: APTT 27.3 Seconds (25.0-31.3); INR 1.2; PROTIME 12.8 Seconds (9.20-11.50)
--- NOTE | 2020-03-24 07:37 | NUR ---
ESA NOTIFIED UPON PT RETURN FROM CT. PT CONNECTED TO MONITOR
[2020-03-24 08:14] VITALS: BP 139/87
[2020-03-24 08:41] LABS: ABSOLUTE LYMPHOCYTES 11.9 thou/uL (0.8-5.3); ABSOLUTE MONOCYTES 0.7 thou/uL (0.0-1.2); ABSOLUTE NEUTROPHILS 20.5 thou/uL (1.6-8.1); ATYPICAL LYMPHS 21 %; PLATELET ESTIMATE ADEQUATE
[2020-03-24 10:05] VITALS: BP 134/68
[2020-03-24 11:12] LABS: HEMATOCRIT 23.7 % (42.0-52.0); HEMOGLOBIN 7.6 gm/dL (14.0-18.0)
--- NOTE | 2020-03-24 16:24 | CON ---
[address] [address] CONSULTATION Name: LUISA TEE Room: [address] IN M.R.#: [id number] Admission: 03/24/20 Attend Phys: Jin Heck MD Discharge: Date of : 39 Report #: [id number] THIS REPORT FOR: //name// cc: Dianelys Leavitt Anna S. DO THIS REPORT FOR: //name// CC: Jin Leavitt DO DICTATED BY: Margaux Bellamy [facility] DATE OF SERVICE: 03/24/2020 Please note at the time of this dictation, the patient was seen and physically examined by myself. REASON FOR CONSULTATION: Rectal bleeding. HISTORY OF PRESENT ILLNESS: This is an 80-year-old male who was brought in by his during the night when he went to go to get up to the bathroom, he noticed a large amount of bright red blood in his bed along with a lot of blood on his way to the bathroom and into the toilet. He states he noted a lot of maroon to bright red bloody stool with large clots and has continued to ooze up until about an hour ago, he states. He states he had a little bit of just very slight discomfort in the very left lower quadrant area that is just very slight to touch. Otherwise, he denies any nausea or vomiting or any change in his eating habits after the last several days. He has to take a low-dose baby aspirin, but no other blood thinners. Apparently on Monday, he had 7 very loose stools that were normal in color. He had 2 episodes on Monday. Prior to that on Monday, he had a normal soft formed bowel movement and denies any constipation. He states once in a while, he will have to take a stool softener, but otherwise negative. He has had an EGD and colonoscopy done at [facility]. He states history of polyps and we will obtain those records for us to review. Otherwise, he denies any upper symptoms at this time. ALLERGIES: PENICILLIN. MEDICATIONS: From home, senna, atorvastatin and losartan, Prilosec, Lasix, Glucotrol, Neurontin, Jakafi and nifedipine. PAST MEDICAL HISTORY: History of CVA, myelofibrosis, leukemia, type 2 diabetes, hypertension, prostate cancer. PAST SURGICAL HISTORY: [place] [address] CONSULTATION Name: LUISA TEE Room: [address]#: [id number] Admission: 03/24/20 Attend Phys: Jin Heck MD Discharge: Date of : 39 Report #: [id number] FAMILY HISTORY: Negative for any GI or female cancers. SOCIAL HISTORY: Lives with his . Denies any alcohol, tobacco or illegal drug use. REVIEW OF SYSTEMS: Twelve-point review of systems is essentially negative except what is mentioned in the HPI. PHYSICAL EXAMINATION: VITAL SIGNS: Temperature 36.3, pulse 62, respirations 18, blood pressure 136/68. HEART: Regular rate and rhythm. LUNGS: Diminished, but clear. ABDOMEN: Soft, positive bowel sounds in all 4 quadrants with just very minor left lower quadrant tenderness noted to palpation. LABORATORY DATA: Hemoglobin 8.4 on admission, states normal for him is around 9.5; white count is 33, which is normal for him; platelets 267; MCV is 74.5. PT is 12, INR is 1.2. GFR is 36, BUN is 31, creatinine is 1.8 and his BNP is 2177. CT showed splenomegaly and gallbladder wall thickening and some diverticulosis. IMPRESSION: 1. Rectal bleeding. 2. Acute anemia on chronic. 3. Left lower quadrant pain, very minimal. 4. Splenomegaly. 5. Chronic kidney disease. 6. History of colon polyps. 7. History of prostate cancer and leukemia. PLAN: 1. Colonoscopy tomorrow. 2. We will start prep today. 3. Obtain records from [facility] on previous EGD and colonoscopy with path. 4. Further recommendations to be made once the above has been performed. Thank you for allowing us to participate in this patient's care. Please do not hesitate to call with any questions in regard to this consult. Painless hematochezia, likely related to divert[place] [address] CONSULTATION Name: LUISA TEE Room: [address] IN M.R.#: [id number] Admission: 03/24/20 Attend Phys: Jin Heck MD Discharge: Date of : 39 Report #: [id number] tomorrow. If bleeding becomes worse or profuse, can consider getting a bleed scan. <ELECTRONICALLY SIGNED> By: Michael Gong MD 03/24/20 1624 1118 [id number] Gong MD /nt
[2020-03-24 17:00] VITALS: BP 185/65
--- NOTE | 2020-03-24 17:10 | NUR ---
PATIENT IS ALERT AND ORIENTED X 4 HE TOLERATED ALL THE BOWEL PREP AND IS NOW RESTING IN THE BED. HIS IS AT THE BEDSIDE. HE CAN SAFELY TRANSFER HIMSELF FROM THE BED TO THE BSC. IV FLUIDS ARE INFUSING AT 100ML PER HOUR. CALL LIGHT IN EASY REACH. HE IS SCHEDULED TO HAVE A COLONOSCOPY IN THE MORNING AT 1030. DENIES ANY DISCOMFORT AT THIS TIME.
--- NOTE | 2020-03-24 17:18 | EKG ---
[place] [address] ELECTROCARDIOGRAM REPORT Name: LUISA TEE Room: [address] ADM IN .R.#: [id number] Admission: 03/24/20 Attend Phys: Jin Heck, Discharge: Date of : 38 Date of Service: 03/24/20 0658 Report #: [id number] THIS REPORT FOR: //name// [facility] ED Test Date: 2020-03-24 Test Time: 06:58:58 Pat Name: LUISA TEE Department: Room: [facility] Gender: M Master Printer: SIS : 1940 Requested By: Jenny Rubin Order Number: [id number] MD: Tereso Puente Measurements Intervals [place] Rate: 61 P: 46 AK: 413 QRS: -17 QRSD: 88 T: 15 QT: 449 QTc: 453 Interpretive Statements Sinus rhythm Prolonged AK interval Inferior infarct, old Anterior infarct, old possible Baseline wander in lead(s) II,III,aVR,aVL,aVF,V2,V4,V5,V6 Compared to ECG 07/29/2019 19:07:28 Sinus bradycardia no longer present Atrial premature complex(es) no longer present ST (T wave) deviation no longer present Myocardial infarct finding still present Electronically Signed On 03-24-2020 17:18:28 CDT by Tereso Puente [email or web address] <ELECTRONICALLY SIGNED> By: Tereso Puente MD, [facility] 03/24/20 1718 0658 0658 Tereso Puente MD, [facility] /EPI
[2020-03-24 18:35] LABS: HEMATOCRIT 22.5 % (42.0-52.0); HEMOGLOBIN 7.3 gm/dL (14.0-18.0)
[2020-03-24 20:30] VITALS: BP 157/64
[2020-03-24 21:20] VITALS: BP 100/56; BP 116/55; BP 131/47; BP 133/59; BP 139/55
--- NOTE | 2020-03-24 22:10 | NUR ---
while rounding on pt he stated he felt funny but couldnt describe how he felt, i took his bp and it was 90/40 so i put him in trendelenburg position and took bp again. 100/56, hr 48, temp 100.3, O2 98% on RA. Blood was stopped and was paged for the first time. resp was setting up the continuous pulse ox and 2L oxygen administered for comfort. pt still having active BRBPR at this time, it had stopped for a time while doing the colonsocopy prep. was paged second time, awaiting call
[2020-03-25 04:21] LABS: BASOPHILS 1.1 %; EOSINOPHILS 0.9 %; LYMPHOCYTES 8.1 %; MCH 25.1 pg (26.0-34.0); MCHC 32.5 g/dL (28.0-37.0); MCV 77.4 fL (80.0-100.0); MONOCYTES 4.8 %; MPV 8.6 fl. (7.2-11.1); NUCLEATED RBCS 1 /100WBC; POLYS 85.1 %; RBC 2.51 mil/uL (4.50-6.00); RDW-CV 21.6 % (10.5-14.5)
[2020-03-25 04:44] LABS: CALCIUM 7.8 mg/dL (8.5-10.1); CREATININE 1.4 mg/dL (0.6-1.3); POTASSIUM 4.1 mmol/L (3.5-5.1)
[2020-03-25 04:45] LABS: ABSOLUTE BASOPHILS 0.2 thou/uL (0.0-0.2); ABSOLUTE EOSINOPHILS 0.1 thou/uL (0.0-0.7); ABSOLUTE LYMPHOCYTES 1.2 thou/uL (0.8-5.3); ABSOLUTE MONOCYTES 0.7 thou/uL (0.0-1.2); ABSOLUTE NEUTROPHILS 12.9 thou/uL (1.6-8.1); WBC 15.2 thou/uL (4.0-11.0)
[2020-03-25 04:46] LABS: PLATELET COUNT* 185 thou/uL (150-400)
[2020-03-25 04:51] LABS: HEMATOCRIT 19.4 % (42.0-52.0); HEMOGLOBIN 6.3 gm/dL (14.0-18.0)
[2020-03-25 06:44] VITALS: BP 141/54; BP 147/61; BP 152/60; BP 155/60
--- NOTE | 2020-03-25 06:53 | NUR ---
PT STARTED SHIFT VSS, AOX4 WITH HGB FALLING FROM 7.6 TO 7.[address] ICU SPECIALIST TO SEE WHAT PARAMETERS THEY WANTEDUSED FOR TRANSFUSION. DR FLORIAN ORDERED 1 UNIT PRBC FOR INFUSION NOW. PT VSS AT START TIME OF TRANSFUSION, AT 15MIN PT TEMP HAD RISEN. APPROX 35 MINUTES PT WAS COMPLAINING OF FEELING FUNNY, DIZZY AND SEEMED TO NOT HAVE MENTAL FOCUS. VITALSWERE ASSESSED WITH TEMP BEING ELEVATED AND BP LOW. BLOOD WAS STOPPED AND DR CALLED. PT VITALS RETURNED TO BASELINE WELL MENTAL STATUS. ORDERED BLOOD TO INFUSE PLANNED AND PT HAD NO FURTHER ISSUES. UPON RECHECK OF HGB PT WAS NOW AT 6.3. HE STATES HE HAS A CRAMPING FEELING IN LLQ AND CAN FEEL BLOOD PASSING FROM RECTUM. HE HAD TWO STOOLS ON BSC THAT WERE PRETTY MUCH COAGULATED BLOOD AND HIS BRIEFWAS ALSO SATURATED WITH BLOOD. ORDER WAS OBTAINED FROM DR FLORIAN TO INFUSE 2 ADDITIONAL UNITS OF PRBC, LAB WAS CALLED AND TRANSFUSION INITIATED. BENIGNO
[2020-03-25 07:50] VITALS: BP 147/61
--- NOTE | 2020-03-25 09:00 | NUR ---
PT.RESTING IN BED,RECEIVING A BLOOD TRANSFUSION. AT BEDSIDE. PT.SAID HE WAS WAITING TO GO DOWN FOR HIS COLONOSCOPY. HE IS FAIRLY INDEPENDENT AT HOME. HIS USUALLY DOES THE DRIVING. SHE USUALLY HELPS HIM PUT HIS SOCKS ON. HE DOES NOT USE ANY DME. HAS A HX OF [facility] FOR HOME HEALTH. SAID THEY WOULD LIKE TO USE THEM IF HH ORDERED.
[2020-03-25 15:04] VITALS: BP 126/55
--- NOTE | 2020-03-25 16:31 | NUR ---
PATIENT NPO THIS AM FOR COLONOSCOPY. HGB 6.3 THIS AM, RECEIVED 2 UNITS OF BLOOD THIS SHIFT. REDRAW AT 1630 FOR H&H. VITALS STABLE. TOLERATING DIET. AT BEDSIDE. PATIENT DID HAVE A SMALL LIQUID STOOL THIS EVENING, NO BLOOD NOTED. IV SL. NO COMPLAINTS OF PAIN.
[2020-03-25 16:57] LABS: HEMATOCRIT 24.6 % (42.0-52.0); HEMOGLOBIN 8.2 gm/dL (14.0-18.0)
[2020-03-25 19:50] VITALS: BP 135/68
--- NOTE | 2020-03-26 05:53 | NUR ---
Pt alert and oriented. VSS on RA. Meds given as ordered. Tylenol given for mild fever. RAC IV dcd per pt's reuqest. LFA IV intact. Pt slept well this shift. No bleeding noted. Pt STB assist. Call light within reach. Hourly roundings made. Possible dc to home today. Will continue to nobitr
[2020-03-26 07:32] VITALS: BP 146/63
[2020-03-26 12:55] LABS: ABSOLUTE BASOPHILS 0.2 thou/uL (0.0-0.2); ABSOLUTE EOSINOPHILS 0.2 thou/uL (0.0-0.7); ABSOLUTE LYMPHOCYTES 1.5 thou/uL (0.8-5.3); ABSOLUTE MONOCYTES 0.8 thou/uL (0.0-1.2); ABSOLUTE NEUTROPHILS 17.3 thou/uL (1.6-8.1); BASOPHILS 1.2 %; EOSINOPHILS 0.9 %; HEMATOCRIT 26.2 % (42.0-52.0); HEMOGLOBIN 8.7 gm/dL (14.0-18.0); LYMPHOCYTES 7.5 %; MCH 26.4 pg (26.0-34.0); MCHC 33.3 g/dL (28.0-37.0); MCV 79.1 fL (80.0-100.0); MPV 8.8 fl. (7.2-11.1); NUCLEATED RBCS 1 /100WBC; PLATELET COUNT* 179 thou/uL (150-400); POLYS 86.4 %; RBC 3.31 mil/uL (4.50-6.00); RDW-CV 23.1 % (10.5-14.5)
[2020-03-26 13:27] VITALS: BP 146/63
--- NOTE | 2020-03-26 14:59 | NUR ---
PT DISCHARGED HOME. COPY OF DISCHARGE INSTRUCTIONS TO PT AND HIS . BOTH VERBALIZED UNDERSTANDING. IV ACCESS REMOVED.
== END 2020-03-26 15:00 | disposition home or self-care (01) | DRG 377 ==
LOC: M.ERS 05:43 → M.TBA-ER 06:40 → M.3W 06:40
PROVIDERS: Personal Emergency Response Attendant; ADMIT Internal Medicine; ATTEND Internal Medicine
PROC: 30233N1 Transfusion of Nonautologous Red Blood Cells into Peripheral Vein, Percutaneous Approach (ICD-10-PCS; principal; 2020-03-25)
PROC: 0DJD8ZZ Inspection of Lower Intestinal Tract, Via Natural or Artificial Opening Endoscopic (ICD-10-PCS; principal; 2020-03-25)
DX: K57.31 Diverticulosis of large intestine without perforation or abscess with bleeding (principal); N17.0 Acute kidney failure with tubular necrosis; D62 Acute posthemorrhagic anemia; Z20.828 Contact with and (suspected) exposure to other viral communicable diseases; R16.1 Splenomegaly, not elsewhere classified; N18.9 Chronic kidney disease, unspecified; D72.829 Elevated white blood cell count, unspecified; K64.9 Unspecified hemorrhoids; E11.22 Type 2 diabetes mellitus with diabetic chronic kidney disease; I12.9 Hypertensive chronic kidney disease with stage 1 through stage 4 chronic kidney disease, or unspecified chronic kidney disease; Z86.73 Personal history of transient ischemic attack (TIA), and cerebral infarction without residual deficits; Z88.0 Allergy status to penicillin; Z86.010 Personal history of colon polyps; Z85.46 Personal history of malignant neoplasm of prostate; Z82.49 Family history of ischemic heart disease and other diseases of the circulatory system; Z79.899 Other long term (current) drug therapy

== ENCOUNTER 2020-04-11 05:03 | Emergency (ER) | payer OTHER ==
[~2020-04-11] VITALS: Ht 185.4 cm; Wt 86.6 kg
[~2020-04-11 05:03] MED LIST changes: +NIFEDIPINE ER30 M1 PO
[2020-04-11 05:34] VITALS: BP 190/67
== END 2020-04-11 05:25 | disposition home or self-care (01) ==
LOC: M.ERS 05:03
DX: L76.21 Postprocedural hemorrhage of skin and subcutaneous tissue following a dermatologic procedure (principal); I10 Essential (primary) hypertension; E11.9 Type 2 diabetes mellitus without complications; Z86.73 Personal history of transient ischemic attack (TIA), and cerebral infarction without residual deficits; Z88.0 Allergy status to penicillin; Z85.46 Personal history of malignant neoplasm of prostate; Y83.8 Other surgical procedures as the cause of abnormal reaction of the patient, or of later complication, without mention of misadventure at the time of the procedure; Y82.8 Other medical devices associated with adverse incidents

== ENCOUNTER 2020-05-15 14:09 | Inpatient (IN) | payer OTHER ==
[~2020-05-15] VITALS: Ht 185.4 cm; Wt 81.6 kg
--- NOTE | ~2020-05-15 | CON ---
[address] [address] CONSULTATION Name: LUISA TEE Room: [address] IN M.R.#: [id number] Admission: 05/15/20 Attend Phys: Thom Nixon Discharge: Date of : 38 Report #: [id number] THIS REPORT FOR: //name// cc: Dianelys Leavitt Anna S. DO THIS REPORT FOR: //name// CC: Dianelys Wilson DICTATED BY: Margaux Bellamy [facility] DATE OF SERVICE: 05/18/2020 Please note at the time of this dictation, the patient was seen and physically examined by myself. REASON FOR CONSULTATION: Acute anemia, symptomatic. HISTORY OF PRESENT ILLNESS: This is an 80-year-old male who presented to the Emergency Room mainly for having shoulder pain, particularly on the left side. He states that he had not fallen or anything that particularly made him come in. He started saw his PCP on Monday, she gave him some pain medicine, but it kept getting worse. He has not had a bowel movement since last either with all of this. He normally takes MiraLax and a stool softener on a regular basis. He only took 3 doses of the pain pill, which he states did not really help. It was noticed that he had a period of he had passed out a couple of times, his states which was very briefly, but prompted him also to come in because of that as well. The patient was seen in March for some rectal bleeding and it was noted that he underwent a colonoscopy that showed hemorrhoids and diverticulosis with no bleeding noted at that time. He has had a previous upper scope done with [facility]. When he left here in March, he has not followed up with either GI group. He states his bowels have typically moved on a daily basis, usually at least 1 soft and formed without having any issues up until this past several days. He is complaining of some left-sided discomfort and he states for him to have an evacuation, he has to push on that left side, which could be partially related to that left inguinal hernia that can be impeding on some of his bowel movement. ALLERGIES: PENICILLIN. MEDICATIONS: From home, nifedipine, Jakafi, aspirin, fish oil, Neurontin, Prilosec, Lasix, Glucotrol, metformin and Lorcet. PAST MEDICAL HISTORY: He has had bradycardia, prostate cancer, hypertension, [place] [address] CONSULTATION Name: LUISA TEE Room: [address] IN [facility].#: [id number] Admission: 05/15/20 Attend Phys: Thom Nixon Discharge: Date of : 38 Report #: [id number] type 2 diabetes, history of CVA. He has had leukemia and myelofibrosis followed by [facility]. He has had anemia with multiple transfusions in the past and history of a bleeding hemorrhoid. Basal cell carcinoma on his face was recently removed. PAST SURGICAL HISTORY: Prostatectomy and his skin cancer removal. SOCIAL HISTORY: He is , lives with his . Denies any alcohol, tobacco or illegal drug use. FAMILY HISTORY: Significant for heart disease, otherwise negative for any GI or female cancers. REVIEW OF SYSTEMS: Twelve-point review of systems is essentially negative except what is mentioned in the HPI. PHYSICAL EXAMINATION: VITAL SIGNS: Temperature 36.9, pulse 92, respirations 16, blood pressure 146/81. HEART: Irregular rate and rhythm. LUNGS: Diminished, but clear. ABDOMEN: Round, positive bowel sounds in all 4 quadrants with some slight left lower quadrant tenderness noted to palpation. LABORATORY DATA: Hemoglobin on admission was 6.6, got a unit of blood, brought him up to 8.3, dropped back down, got another unit and currently he is setting at 7.3; white count is 13; platelets 167. Sodium is 128, BUN is 34, creatinine 1.6. GFR is 42. Chest x-ray: Mildly increased bibasilar densities noted, otherwise normal. IMPRESSION: 1. Acute on chronic anemia. 2. Constipation. 3. Leukocytosis. 4. Chronic kidney disease. 5. Diabetes. 6. Myelofibrosis and leukemia. PLAN: 1. Labs, iron studies, B12, soluble transferrin. 2. Further recommendations to be made once the labs have been noted. 3. Watch [place] [address] CONSULTATION Name: LUISA TEE Room: [address]#: [id number] Admission: 05/15/20 Attend Phys: Thom Nixon Discharge: Date of : 39 Report #: [id number] Thank you for allowing us to participate in this patient's care. Please do not hesitate to call with any questions. By: 1100 [id number] Pope MD /rick
[2020-05-15 14:25] VITALS: BP 177/76
[2020-05-15] MEDS ORDERED: LORCET 5-325 M1 EACH PO (14:28)
[2020-05-15 15:04] LABS: HEMATOCRIT 20.5 % (42.0-52.0); MCH 24.8 pg (26.0-34.0); MCHC 32.1 g/dL (28.0-37.0); MCV 77.2 fL (80.0-100.0); MPV 9.8 fl. (7.2-11.1); NUCLEATED RBCS 0 /100WBC; PLATELET COUNT* 228 thou/uL (150-400); RBC 2.66 mil/uL (4.50-6.00); RDW-CV 22.5 % (10.5-14.5); WBC 18.6 thou/uL (4.0-11.0)
[2020-05-15 15:05] LABS: HEMOGLOBIN 6.6 gm/dL (14.0-18.0)
[2020-05-15 15:19] LABS: APTT 31.3 Seconds (25.0-31.3); INR 1.3
[2020-05-15 15:23] LABS: CALCIUM 8.1 mg/dL (8.5-10.1); CREATININE 1.5 mg/dL (0.6-1.3)
[2020-05-15 15:32] LABS: URINE BILIRUBIN NEGATIVE (Negative); URINE BLOOD TRACE (Negative); URINE CLARITY CLEAR; URINE COLOR YELLOW; URINE GLUCOSE-RANDOM 3+ (Negative); URINE KETONES NEGATIVE (Negative); URINE LEUKOCYTES-REFLEX NEGATIVE (Negative); URINE NITRITE-REFLEX NEGATIVE (Negative); URINE PROTEIN 1+ (Negative); URINE UROBILINOGEN 0.2 E.U./dl (0.2-1.0)
[2020-05-15 15:34] LABS: ALBUMIN 3.7 g/dL (3.4-5.0); MAGNESIUM 1.7 mg/dL (1.8-2.4); TOTAL BILIRUBIN 0.6 mg/dL (<0.1-1.0); TOTAL PROTEIN 6.7 g/dL (6.4-8.2)
[2020-05-15 16:31] LABS: ABSOLUTE LYMPHOCYTES 5.4 thou/uL (0.8-5.3); ABSOLUTE MONOCYTES 1.3 thou/uL (0.0-1.2); MYELOCYTES 2 %; PLATELET ESTIMATE ADEQUATE; PROMYELOCYTES 1 %
[2020-05-15 16:32] LABS: ANISOCYTOSIS 3+; BLASTS 5 %
[2020-05-15 16:33] LABS: POIKILOCYTOSIS 2+; POLYCHROMASIA 1+
--- NOTE | 2020-05-15 16:44 | EKG ---
[place] [address] ELECTROCARDIOGRAM REPORT Name: LUISA TEE Room: [facility]#: [id number] Admission: 05/15/20 Attend Phys: Discharge: Date of : 38 Date of Service: 05/15/20 1434 Report #: [id number] THIS REPORT FOR: //name// [facility] ED Test Date: 2020-05-15 Test Time: 14:34:06 Pat Name: LUISA TEE Department: Room: Gender: Director Health: : 1940 Requested By: Juliet Drake Order Number: [id number] MD: Solo Velazquez Measurements Intervals [place] Rate: 92 P: [place]: QRS: -10 QRSD: 88 T: 67 QT: 382 QTc: 473 Interpretive Statements sinus rhythm with first degree av block Consider anterior infarct Compared to ECG 03/24/2020 06:58:58 Myocardial infarct finding still present Electronically Signed On 05-15-2020 16:44:06 CDT by Solo Velazquez [email or web address] <ELECTRONICALLY SIGNED> By: Solo Velazquez MD, [facility] 05/15/20 1644 1434 1434 Solo Velazquez MD, [facility] /EPI
--- NOTE | 2020-05-15 18:25 | NUR ---
BLOOD PRODUCT INITIATED, NO SIGNS OF DISTRESS AT THIS TIME. COSIGNED BY NURSE JANNA LOZANO.
[2020-05-15 19:43] VITALS: BP 140/70
[2020-05-15 20:30] VITALS: BP 155/75
--- NOTE | 2020-05-15 20:30 | NUR ---
RECEIVED REPORT FROM ER AND ADMITTED TO ROOM. PT PLEASANT AND ORIENTED X4 BUT FORGETFUL AND LAUGHS TO COVER UP. AT BEDSIDE ASSISTING WITH ADMISSION. BLOOD TRANSFUSION COMPLETED AT THIS TIME WITHOUT INCIDENT. TELEMETRY APPLIED SHOWING ACCELERATED JUNCTIONAL RYTHYM. BRIEFS CHANGED DUE TO INCONT OF URINE. SEE ADMISSION HX AND ASSESSMENT. WILL CONT TO MONITOR AND ASSIST NEEDED.
[2020-05-15 22:15] LABS: CALCIUM 8.3 mg/dL (8.5-10.1); CREATININE 1.6 mg/dL (0.6-1.3)
[2020-05-15 23:45] VITALS: BP 123/64
[2020-05-16 04:49] LABS: HEMATOCRIT 24.4 % (42.0-52.0); HEMOGLOBIN 8.1 gm/dL (14.0-18.0); MCH 25.7 pg (26.0-34.0); MCHC 33.1 g/dL (28.0-37.0); MCV 77.5 fL (80.0-100.0); RBC 3.15 mil/uL (4.50-6.00); RDW-CV 22.7 % (10.5-14.5); WBC 18.9 thou/uL (4.0-11.0)
--- NOTE | 2020-05-16 07:18 | NUR ---
AWAKE MOST OF NIGHT WITH C/O RT NECK AND SHOULDER PAIN. PO MED GIVEN. VOIDING WELL WHILE STANDING AT BEDSIDE, STEADY. NO CHANGE IN ASSESSMENT. TELEMETRY CONT TO SHOW ACCELERATED JUNCTIONAL. HOURLY ROUNDING OBSERVED.
[2020-05-16 08:00] VITALS: BP 130/60
[2020-05-16 13:38] VITALS: BP 147/66
[2020-05-16 16:00] VITALS: BP 128/68
--- NOTE | 2020-05-16 16:44 | NUR ---
PATINET RESTING IN BED. PATINET WAS SEEN BY NEURO TODAY. CT OF HEAD AND CERVICAL SPINE COMPLETED. VSS ND PATINET IN NO APPARNET SIGNS OF DISTRESS AT THIS TIME. PATIENT STILL HAS CONFUSION AND LETHARGY.
[2020-05-16 19:25] LABS: CREATININE 1.5 mg/dL (0.6-1.3); POTASSIUM 4.8 mmol/L (3.5-5.1)
[2020-05-16 20:00] VITALS: BP 142/63
[2020-05-17] VITALS (7 sets, daily range): BP systolic 119–179; BP diastolic 57–90
[2020-05-17 08:58] LABS: HEMATOCRIT 20.5 % (42.0-52.0); MCH 25.3 pg (26.0-34.0); MCHC 32.7 g/dL (28.0-37.0); MCV 77.2 fL (80.0-100.0); MPV 10.1 fl. (7.2-11.1); NUCLEATED RBCS 1 /100WBC; PLATELET COUNT* 187 thou/uL (150-400); RBC 2.65 mil/uL (4.50-6.00); RDW-CV 22.8 % (10.5-14.5); WBC 16.9 thou/uL (4.0-11.0)
[2020-05-17 09:09] LABS: HEMOGLOBIN 6.7 gm/dL (14.0-18.0)
[2020-05-17 09:38] LABS: CALCIUM 7.5 mg/dL (8.5-10.1); CREATININE 1.4 mg/dL (0.6-1.3); POTASSIUM 5.2 mmol/L (3.5-5.1); TOTAL BILIRUBIN 0.7 mg/dL (<0.1-1.0); TOTAL PROTEIN 5.6 g/dL (6.4-8.2)
[2020-05-17 09:41] LABS: ABSOLUTE LYMPHOCYTES 5.6 thou/uL (0.8-5.3); ABSOLUTE MONOCYTES 0.3 thou/uL (0.0-1.2); ATYPICAL LYMPHS 12 %; PLATELET ESTIMATE ADEQUATE
--- NOTE | 2020-05-17 18:20 | NUR ---
PATIENT RESTING IN BED. UP WITH MAX ASSISTY X2 TO STAND. Q2H TURNS BUT PATIENT FAVROS HIS RIGHT SIDE WHILE LYING IN BED. TRANSFUSION TODAY WELL TOLERATED. PATIENT WAS FEBRILE PRIOR TO INITIATION OF BLOOD PRODUCTS AND PRIMARY WAS NOTIFIED. PATIENT HAS REMMAINED SLIGHTLY WHEEZY AT TIMES THROUGHOURT THE DAY AND O2 SATURATIONO HAS MAINTAINED GREATER THAN 96%.
[2020-05-17 23:49] LABS: URINE BILIRUBIN NEGATIVE (Negative); URINE BLOOD 1+ (Negative); URINE CLARITY CLEAR; URINE COLOR YELLOW; URINE GLUCOSE-RANDOM NEGATIVE (Negative); URINE KETONES NEGATIVE (Negative); URINE LEUKOCYTES NEGATIVE (Negative); URINE NITRITE NEGATIVE (Negative); URINE PROTEIN 1+ (Negative); URINE SPECIFIC GRAVITY 1.025 (1.005-1.030); URINE UROBILINOGEN 0.2 E.U./dl (0.2-1.0)
[2020-05-18] VITALS: BP 132/57
[2020-05-18 01:31] LABS: SQUAMOUS NONE SEEN /LPF (0-3)
[2020-05-18 01:32] LABS: FINE GRANULAR CASTS 4-10 Moderate /LPF (None Seen)
[2020-05-18 01:33] LABS: BACTERIA 1-9 Few /HPF (None Seen); URINE RBC None Seen /HPF (0-2); URINE WBC 0-5 Rare /HPF (0-5)
[2020-05-18 01:34] LABS: AMORPHOUS URATES Many /LPF (None Seen)
[2020-05-18 03:05] LABS: GLYCOHEMOGLOBIN (HGB A1C) 6.9 % (4.8-5.6)
[2020-05-18 04:00] VITALS: BP 138/67
[2020-05-18 06:40] LABS: HEMATOCRIT 22.1 % (42.0-52.0); HEMOGLOBIN 7.3 gm/dL (14.0-18.0); MCHC 32.9 g/dL (28.0-37.0); MCV 78.9 fL (80.0-100.0); MPV 10.6 fl. (7.2-11.1); RBC 2.8 mil/uL (4.50-6.00); RDW-CV 22.2 % (10.5-14.5)
[2020-05-18 06:54] LABS: ALBUMIN 2.9 g/dL (3.4-5.0); CREATININE 1.6 mg/dL (0.6-1.3); POTASSIUM 4.4 mmol/L (3.5-5.1); TOTAL BILIRUBIN 0.5 mg/dL (<0.1-1.0)
[2020-05-18 07:46] VITALS: BP 145/81
[2020-05-18 11:54] VITALS: BP 120/53
[2020-05-18 12:20] LABS: % SATURATION 31 % (20-39); IRON 53 ug/dL (50-175)
[2020-05-18 15:49] VITALS: BP 115/54
--- NOTE | 2020-05-18 18:50 | NUR ---
PT.KNOWN FROM PREVIOUS HOSPITAL STAY. HE LIVES WITH HIS . IS NORMALLY INDEPENDENT. NEEDS MINOR ASSIST TO DRESS. NO USE OF DME. HAS A HX OF [facility] FOR HOME HEALTH. NO HX OF SNF. NORMALLY DRIVES. NA REMAINS LOW,CAUSING PT.CONFUSION. PT/OT ORDERED, NURSING STATED MAX ASS.OF 2 TO STAND ON 05/17. CM WILL FOLLOW.
--- NOTE | 2020-05-18 18:52 | NUR ---
PATIENT RESTING IN BED. UP WITH ASSIST X1 AND WALKER. PERALES TO DRAIN. 2L PER NASAL CANULA.
[2020-05-18 19:50] VITALS: BP 123/60
[2020-05-19] VITALS: BP 121/60
--- NOTE | 2020-05-19 03:44 | NUR ---
ASSUMED CARE OF PT AT 1900. PT IS ALERT AND ORIENTED. VSS. PERRLA. NO COMPLAINTS OF PAIN. PT HAS A PERALES IN PLACE. PT IS IN SINUS RYTHM WITH PAC'S. PT IS SLEEPING QUIETLY IN BED. RESPIRATIONS ARE EVEN AND NONLABORED. WILL CONTINUE TO MONITOR PT.
[2020-05-19 04:00] VITALS: BP 115/61
[2020-05-19 08:00] VITALS: BP 132/60
[2020-05-19 12:00] VITALS: BP 125/47
[2020-05-19] MEDS ORDERED: LOSARTAN POTAS100 MG PO (13:53)
[2020-05-19] MEDS ORDERED: D3-501250 MCG PO (13:54)
[2020-05-19 16:00] VITALS: BP 104/43
--- NOTE | 2020-05-19 16:08 | NUR ---
ORTHO CONSULT TODAY FOR L SHOULD PAIN. SHOULDER XRAYS TAKEN 05/15 NEG. STATED PT.HAVING SOME RELIEF WITH LIDODERM PATCH. IF PAIN CONTINUES,RECOMMENDS A BONE SCAN. TO HAVE PT/OT EVALS TODAY.
[2020-05-19 19:15] VITALS: BP 96/38
[2020-05-20 00:30] VITALS: BP 109/46
--- NOTE | 2020-05-20 02:39 | NUR ---
ASSUMED CARE OF PT AT 1900. PT IS ALERT AND ORIENTED. VSS. PERRLA. NO COMPLAINTS OF PAIN. UP WITH 1 ASSIST. PT IS ON ROOM AIR. PT IS IN SINUS RYTHM ON THE TELEMETRY. PT IS RESTING COMFORTABLY IN BED. RESPIRATIONS ARE EVEN AND NONLABORED. WILL CONTINUE TO MONITOR PT.
[2020-05-20 06:09] LABS: HEMOGLOBIN 7.6 gm/dL (14.0-18.0); MCH 25.7 pg (26.0-34.0); MCV 77.9 fL (80.0-100.0); MPV 11.1 fl. (7.2-11.1); RBC 2.94 mil/uL (4.50-6.00); RDW-CV 22.8 % (10.5-14.5); WBC 16.3 thou/uL (4.0-11.0)
[2020-05-20 06:31] LABS: ALBUMIN 2.6 g/dL (3.4-5.0); CALCIUM 8.3 mg/dL (8.5-10.1); CREATININE 1.9 mg/dL (0.6-1.3); MAGNESIUM 2.6 mg/dL (1.8-2.4); POTASSIUM 5.2 mmol/L (3.5-5.1); TOTAL BILIRUBIN 0.2 mg/dL (<0.1-1.0); TOTAL PROTEIN 5.9 g/dL (6.4-8.2)
[2020-05-20 06:36] VITALS: BP 119/63
[2020-05-20 08:50] VITALS: BP 107/59
[2020-05-20 11:30] VITALS: BP 103/65
[2020-05-20 14:24] LABS: CALCIUM 8.4 mg/dL (8.5-10.1); CREATININE 1.9 mg/dL (0.6-1.3); POTASSIUM 4.5 mmol/L (3.5-5.1)
--- NOTE | 2020-05-20 15:34 | NUR ---
Ortho to see Pt today for left shoulder pain. Video swallow today. Hemo following. Per , Pt needs to be up and walking, plans is for Pt to return home. PT/OT to eval today.
[2020-05-20 15:41] LABS: BE -3.8 mmol/L (-2 to +3); PCO2 34.5 mmHg (35.0-45.0); pH 7.393 (7.340-7.450)
[2020-05-20 15:49] LABS: PO2 126.6 mmHg (75.0-100.0)
[2020-05-20 16:00] VITALS: BP 100/50
--- NOTE | 2020-05-20 18:18 | NUR ---
PT UP IN CHAIR MOST OF THE DAY VERY TIRED FATIGUED AND WEAK ABGS DRAWN PO2 CRITICAL PHYSICIAN NOTIFIED 2L NC NONPROD COUGH AT TIMES FAIR APPETITE IV BOLUS OF 500ML GIVEN AND IV ABT MONITOR SHOWS SR PVCS AND PACS USUALLY IN SEQUENCE EVERY 2ND QRS AT BEDSIDE AND NOTICED HE WAS DIFFERENT TODAY THAN YESTERDAY CT OF HEAD SEEMS TO BE NEGATIVE HE IS FORGETFUL AT TIMES AND FALLING ASLEEP WHEN TALKING TO US VIDEO SWALLOW DONE TODAY STILL C/O LEFT SHOULDER PAIN WELL SIDE RIB PAIN ON THE LEFT ALSO CALL LIGHT IN REACH PUTTING PT IN BED NOW FOR THE NIGHT ASSIST X1 WITH WALKER
[2020-05-20 19:40] VITALS: BP 129/78
[2020-05-21] VITALS: BP 119/44
--- NOTE | 2020-05-21 02:57 | NUR ---
ASSUMED CARE OF PT AT 1900. PT IS ALERT AND ORIENTED. VSS. MEJIA. PT REPORTS ONGOING SEVERE PAIN IN HIS LEFT SHOULDER. PT UP TO THE CHAIR AND REPOSITIONED SEVERAL TIMES. NOTIFIED. HEATING PAD APPLIED. PT ALSO HAS A LIDOCAINE PATCH. PT GIVEN HYDROCODONE AND A MUSCLE RELAXER. PT FELL ASLEEP UNTIL 0230. PT IS WIDE AWAKE NOW. HE IS STILL COMPLAINING OF PAIN IN HIS LEFT SHOULDER. HYDROCODONE BEING GIVEN AGAIN.
[2020-05-21 03:53] LABS: CALCIUM 8.6 mg/dL (8.5-10.1); MAGNESIUM 2.4 mg/dL (1.8-2.4)
[2020-05-21 04:00] VITALS: BP 125/51
[2020-05-21 07:30] VITALS: BP 85/31
--- NOTE | 2020-05-21 11:54 | NUR ---
Anticipate dc to home tomorrow. CM spoke with Pt and in room, plan is home with [facility], they have used them in the past. CM updated HH of referral and will fax orders at dc, along with covid test. [facility] f:[phone]
[2020-05-21 12:00] VITALS: BP 97/53
[2020-05-21 16:00] VITALS: BP 96/42
[2020-05-21 21:00] VITALS: BP 134/52
[2020-05-22] VITALS: BP 134/52
[2020-05-22 04:00] VITALS: BP 106/46
[2020-05-22 05:05] LABS: HEMATOCRIT 22.1 % (42.0-52.0); HEMOGLOBIN 7.2 gm/dL (14.0-18.0); MCH 25.9 pg (26.0-34.0); MCHC 32.3 g/dL (28.0-37.0); MCV 80.1 fL (80.0-100.0); RBC 2.76 mil/uL (4.50-6.00); RDW-CV 22.5 % (10.5-14.5); WBC 12.7 thou/uL (4.0-11.0)
[2020-05-22 05:25] LABS: CALCIUM 8.4 mg/dL (8.5-10.1); CREATININE 1.9 mg/dL (0.6-1.3); MAGNESIUM 2.3 mg/dL (1.8-2.4); POTASSIUM 5.4 mmol/L (3.5-5.1)
[2020-05-22 08:00] VITALS: BP 136/55
--- NOTE | 2020-05-22 13:53 | NUR ---
BLADIMIR initiated transfer to [facility] for ID. Faxed facesheet, H&P and PN to [phone]. Per house sup, they anticipate having a bed later today. BLADIMIR updated nurse and Dr. Quiles started both the emtala and transfer forms, both to be completed at nd.
--- NOTE | 2020-05-22 14:02 | 2DMMODE ---
[place] [address] 2 D/M-MODE ECHOCARDIOGRAM Name: LUISA TEE Room: [address] M.R.#: [id number] Admission: 05/15/20 Attend Phys: Oswald Osborne Discharge: Date of : 38 Date of Service: 05/22/20 1401 Report #: [id number] THIS REPORT FOR: cc: Dianelys Leavitt,Dianelys Renee,Solo Vázquez MD [facility] ~ APPROVED REPORT Study performed: 05/22/2020 10:49:43 EXAM: Comprehensive 2D, Doppler, and color-flow Echocardiogram Patient Location: Bedside BSA: 2.04 HR: 63 bpm BP: 136/55 mmHg Other Information Study Quality: Good Indications R/O Valvular Vegetation 2D Dimensions IVSd: 16.09 (7-11mm) LVOT Diam: 18.96 (18-24mm) LVDd: 39.12 mm PWd: 10.68 (7-11mm) Ascending Ao: 35.25 (22-36mm) LVDs: 26.20 (25-40mm) Aortic Root: 31.22 mm Volumes Left Atrial Volume (Systole) LA ESV Index: 28.90 mL/m2 Aortic Valve AoV Peak Rickey.: 2.49 m/s AO Peak Gr.: 24.87 mmHg LVOT Max P.07 mmHg AO Mean Gr.: 11.85 mmHg LVOT Mean P.93 mmHg LVOT Max V: 1.01 m/s AO V2 VTI: 53.50 cm LVOT Mean V: 0.62 m/s ROBERTH (VTI): 1.16 cm2 LVOT V1 VTI: 22.06 cm Mitral Valve E/A Ratio: 1.44 [place] [address] 2 D/M-MODE ECHOCARDIOGRAM Name: LUISA TEE Room: [address] IN [facility].#: [id number] Admission: 05/15/20 Attend Phys: Oswald Osborne Discharge: Date of : 38 Date of Service: 05/22/20 1401 Report #: [id number] MV Decel. Time: 192.69 ms MV E Max Rickey.: 0.70 m/s MV PHT: 55.88 ms MVA (PHT): 3.94 cm2 TDI E/Lateral E': 5.83 E/Medial E': 11.67 Medial E' Rickey.: 0.06 m/s Lateral E' Rickey.: 0.12 m/s Pulmonary Valve PV Peak Rickey.: 0.73 m/s PV Peak Gr.: 2.11 mmHg Tricuspid Valve RAP Estimate: 5.00 mmHg TR Peak Gr.: 34.13 mmHg RVSP: 39.13 mmHg PA Pressure: 39.13 mmHg Left Ventricle The left ventricle is normal size. There is normal LV segmental wall motion. Mild concentric left ventricular hypertrophy. Left ventricular systolic function is normal. The left ventricular ejection fraction is within the normal range. LVEF is 50-55%. Grade I - abnormal relaxation pattern. Right Ventricle The right ventricle is normal size. The right ventricular systolic function is normal. Atria The left atrium size is normal. The right atrium size is normal. Aortic Valve Aortic valve is calcified. Trace aortic regurgitation. Mild aortic stenosis. Mitral Valve The mitral valve is normal in structure. Trace mitral regurgitation. No evidence of mitral valve stenosis. Tricuspid Valve The tricuspid valve is normal in structure. Trace tricuspid regurgitation. estimated pa pressure 40 [place] [address] 2 D/M-MODE ECHOCARDIOGRAM Name: LUISA TEE Room: [address]#: [id number] Admission: 05/15/20 Attend Phys: Oswald Osborne Discharge: Date of : 38 Date of Service: 05/22/20 1401 Report #: [id number] Pulmonic valve is not well visualized. There is no pulmonic valvular regurgitation. Great Vessels The aortic root is normal in size. IVC is normal in size and collapses >50% with inspiration. Pericardium There is no pericardial effusion. <Conclusion> Mild concentric left ventricular hypertrophy. LVEF is 50-55%. Mild aortic stenosis. Trace tricuspid regurgitation. estimated pa pressure 40 mm Hg <ELECTRONICALLY SIGNED> By: Solo Velazquez MD, FACC 05/22/201400 00 00 Solo Velazquez MD, FACC /INF
--- NOTE | 2020-05-22 18:00 | NUR ---
Pt A&O X4. VSS. Telemetry dc'd at 0930; was SR at that time. C/O chronic pain to neck, L shoulder, and back; refused pain medications except for topical lidoderm patch and voltaren gel. in room most of day, arrived at around 1000. Pt transferred to [facility] for Infectious Disease consult. Dc'd from unit per EMS via cart.
== END 2020-05-22 18:30 | disposition short-term general hospital (02) | DRG 871 ==
LOC: M.ERS 14:09 → M.TBA-ER 16:29 → M.2W 16:29
PROVIDERS: Emergency Medicine Emergency Medical Services; Internal Medicine; Nurse Practitioner Adult Health; Nurse Practitioner Family; Psychiatry & Neurology Neurology; ADMIT Internal Medicine; ATTEND Internal Medicine
PROC: 30233N1 Transfusion of Nonautologous Red Blood Cells into Peripheral Vein, Percutaneous Approach (ICD-10-PCS; principal; 2020-05-15)
DX: A41.01 Sepsis due to Methicillin susceptible Staphylococcus aureus (principal); J15.6 Pneumonia due to other Gram-negative bacteria; G92 Toxic encephalopathy; I50.33 Acute on chronic diastolic (congestive) heart failure; D75.81 Myelofibrosis; I13.0 Hypertensive heart and chronic kidney disease with heart failure and stage 1 through stage 4 chronic kidney disease, or unspecified chronic kidney disease; E87.1 Hypo-osmolality and hyponatremia; C95.90 Leukemia, unspecified not having achieved remission; N39.0 Urinary tract infection, site not specified; D62 Acute posthemorrhagic anemia; E44.1 Mild protein-calorie malnutrition; N18.30 Chronic kidney disease, stage 3 unspecified; K59.00 Constipation, unspecified; E11.65 Type 2 diabetes mellitus with hyperglycemia; E11.22 Type 2 diabetes mellitus with diabetic chronic kidney disease; M47.892 Other spondylosis, cervical region; M19.012 Primary osteoarthritis, left shoulder; I48.91 Unspecified atrial fibrillation; Z86.73 Personal history of transient ischemic attack (TIA), and cerebral infarction without residual deficits; Z88.0 Allergy status to penicillin; Z82.49 Family history of ischemic heart disease and other diseases of the circulatory system; Z68.23 Body mass index [BMI] 23.0-23.9, adult; Z20.828 Contact with and (suspected) exposure to other viral communicable diseases